=== PATIENT | male | born 1940 | race Caucasian/White ===

== ENCOUNTER → 2017-02-15 | Outpatient (CLI) | payer OTHER ==
--- NOTE | 2017-02-15 11:25 | CARD ---
APPROVED REPORT EXAM: Two-dimensional and M-mode echocardiogram with Doppler and color Doppler. Other Information Quality : Good INDICATION Cardiac Disease: CAD 2D DIMENSIONS RVDd2.9 (2.9-3.5cm)Left Atrium(2D)3.4 (1.6-4.0cm) IVSd0.9 (0.7-1.1cm)Aortic Root(2D)3.4 (2.0-3.7cm) LVDd5.2 (3.9-5.9cm)LVOT Diameter2.3 (1.8-2.4cm) PWd0.9 (0.7-1.1cm)LVDs2.9 (2.5-4.0cm) FS (%) 30.0 %SV97.3 ml LVEF(%)60.0 (>50%) Aortic Valve AoV Peak Shay.105.1cm/sAoV VTI21.9cm AO Peak GR.4.4mmHgLVOT Peak Shay.103.4cm/s LVOT VTI 17.94cmAO Mean GR.3mmHg DEIDRE (VMAX)4.48bp6MZX (VTI)3.44cm2 Mitral Valve MV E Fixdiohf28.4cm/sMV DECEL CEZA901we MV A Yuejhfzc697.7cm/sMV FJO10nk E/A Ratio0.7MVA (PHT)3.34cm2 TDI E/Medial E'14.4 Tricuspid Valve TR P. Kkudufec024ka/sRAP UXSHCMTT6wvWs TR Peak Gr.85meVzKMCZ47opNg Pulmonary Vein S1 Swqtljqt81.6cm/sD2 Bhtknwzc56.8cm/s LEFT VENTRICLE The left ventricle is normal size. There is normal left ventricular wall thickness. The left ventricu lar systolic function is normal and the ejection fraction is within normal range. The Ejection Fracti on is 55-60%. There is normal LV segmental wall motion. Transmitral Doppler flow pattern is Grade I-a bnormal relaxation pattern. RIGHT VENTRICLE The right ventricle is normal size. The right ventricular systolic function is normal. ATRIA The left atrium size is normal. The right atrium size is normal. The interatrial septum is intact wit h no evidence for an atrial septal defect or patent foramen ovale as noted on 2-D or Doppler imaging. AORTIC VALVE The aortic valve is calcified but opens well. Doppler and Color Flow revealed trace aortic regurgitat ion. There is no significant aortic valvular stenosis. MITRAL VALVE The mitral valve is calcified but opens well. There is no evidence of mitral valve prolapse. There is no mitral valve stenosis. Doppler and Color-flow revealed trace to mild mitral regurgitation. TRICUSPID VALVE The tricuspid valve is normal in structure and function. Doppler and Color Flow revealed trace tricus pid regurgitation. The PA pressure was estimated at 29 mmHg. There is no tricuspid valve stenosis. PULMONIC VALVE Doppler and Color Flow revealed trace pulmonic valvular regurgitation. There is no pulmonic valvular stenosis. GREAT VESSELS The aortic root is normal in size. The ascending aorta is mildly dilated at 3.9 cm. The IVC is normal in size and collapses >50% with inspiration. PERICARDIAL EFFUSION There is no evidence of significant pericardial effusion. Critical Notification Critical Value: No <Conclusion> The left ventricular systolic function is normal and the ejection fraction is within normal range. Th e Ejection Fraction is 55-60%. There is normal LV segmental wall motion. The ascending aorta is mildly dilated at 3.9 cm.
== END | disposition home or self-care (01) ==
LOC: ECHO 10:03
PROVIDERS: ATTEND Nurse Practitioner
DX: I25.10 Atherosclerotic heart disease of native coronary artery without angina pectoris (principal)
CPT/HCPCS: 93306

== ENCOUNTER → 2017-06-06 | Outpatient (CLI) | payer OTHER ==
--- NOTE | 2017-06-06 08:54 | KCIC ---
CHEST PA LATERAL History: Preop, left knee replacement 07/22/2017. Comparison: None. Findings: The cardiomediastinal silhouette is normal. Pulmonary vasculature is normal. There is a tiny nodule in the left midlung projecting over a rib near the inferior scapula that may be a calcified granuloma. There is vague right suprahilar airspace opacity measuring about 4 cm. No pleural effusion or pneumothorax is seen. Degenerative endplate spurring in the thoracic spine. IMPRESSION: Right suprahilar airspace opacity. Recommend comparison to prior chest radiographs. If none are available recommend further evaluation with noncontrast CT chest. Electronically signed by: Erwin Sanchez MD (06/06/2017 8:50 AM) [id number]
== END | disposition home or self-care (01) ==
LOC: KCIC 08:09
PROVIDERS: ATTEND Family Medicine
DX: Z01.818 Encounter for other preprocedural examination (principal); R91.8 Other nonspecific abnormal finding of lung field; Z96.652 Presence of left artificial knee joint
CPT/HCPCS: 71020

== ENCOUNTER → 2017-07-15 | Outpatient (CLI) | payer OTHER | END | disposition home or self-care (01) | LOC: KCIC CT 09:29 | DX: J84.10 Pulmonary fibrosis, unspecified (principal); I77.819 Aortic ectasia, unspecified site; E07.9 Disorder of thyroid, unspecified; M47.9 Spondylosis, unspecified; R91.1 Solitary pulmonary nodule | CPT/HCPCS: 71250 ==

== ENCOUNTER → 2017-08-08 | Outpatient (CLI) | payer OTHER | END | disposition home or self-care (01) | LOC: KCIC US 10:45 | DX: E04.2 Nontoxic multinodular goiter (principal) | CPT/HCPCS: 76536 ==

== ENCOUNTER → 2018-03-17 | Outpatient (CLI) | payer OTHER ==
--- NOTE | 2018-03-17 10:34 | KCIC ---
Ankle brachial indices HISTORY: Dyslipidemia. FINDINGS: Right ankle brachial index is 1.10. Left ankle-brachial index is 1.04. IMPRESSION: Normal ankle-brachial indices. Electronically signed by: Rakesh Valadez MD (03/17/2018 10:31 AM) [facility]-KCIC2
== END | disposition home or self-care (01) ==
LOC: KCIC US 08:16
PROVIDERS: ATTEND Family Medicine
DX: E78.5 Hyperlipidemia, unspecified (principal); I25.10 Atherosclerotic heart disease of native coronary artery without angina pectoris; Z96.652 Presence of left artificial knee joint
CPT/HCPCS: 93922

== ENCOUNTER → 2018-03-21 | Outpatient (CLI) | payer OTHER ==
--- NOTE | 2018-03-21 19:43 | KCIC ---
Examination: FOOT RIGHT 3V History: Right lower extremity edema. Erythema of the great toe. Comparison/Correlation: None Findings: Total 3 images of the right foot were obtained. Osteopenia noted. Moderate-sized calcaneal spur is present. No acute fracture or bony destruction. Hallux valgus is present. Impression: No suspicious acute process. Consider further evaluation if osteomyelitis is a concern. Electronically signed by: Zackery Guerra MD (03/21/2018 7:39 PM) [facility]
== END | disposition home or self-care (01) ==
LOC: KCIC 08:04
PROVIDERS: ATTEND Family Medicine
DX: M85.871 Other specified disorders of bone density and structure, right ankle and foot (principal); M77.31 Calcaneal spur, right foot; M20.11 Hallux valgus (acquired), right foot; E78.5 Hyperlipidemia, unspecified; I25.10 Atherosclerotic heart disease of native coronary artery without angina pectoris; Z96.652 Presence of left artificial knee joint
CPT/HCPCS: 73630

== ENCOUNTER 2018-04-13 14:43 | Inpatient (IN) | payer OTHER ==
[~2018-04-13] VITALS: Ht 190.5 cm; Wt 84.8 kg
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
[2018-04-13] MEDS ORDERED: ACETAMINOPHEN 325 MG TABLET. PO PRN (16:15)
[2018-04-13] MEDS ORDERED: traMADol 50 MG TABLET PO PRN (16:15)
[2018-04-13] MEDS ORDERED: DOCUSATE SODIUM 100 MG CAPSULE. PO PRN (16:15)
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
--- NOTE | 2018-04-13 16:41 | EKG ---
[facility] [address] [place] [address] Test Date: 2018-04-13 Test Time: 15:06:44 Pat Name: RODRIGUEZ BACA Department: Room: 436 Gender: M [employer] Job Titles: : 1940 Requested By: MERARY RODRÍGUEZ Order Number: [id number] Reading MD: Adan De Souza MD Measurements Intervals [place] Rate: 57 P: 54 WI: 300 QRS: -59 QRSD: 102 T: 24 QT: 442 QTc: 433 Interpretive Statements SINUS RHYTHM MOBITZ TYPE 1 LAD Electronically Signed On 04-14-2018 12:27:33 CDT by Adan De Souza MD
--- NOTE | 2018-04-13 17:24 | RAD ---
LEFT FEMUR XRAY INDICATION: PAIN FROM FALL COMPARISON: None. FINDINGS: Acute, overlapping subtrochanteric fracture of the proximal left femur. There is medial displacement of the distal fracture fragment. Tricompartmental knee arthrosis. Moderate left hip arthrosis. Suggestion of diffuse osteopenia. Vascular calcifications. IMPRESSION: Acute, overlapping subtrochanteric fracture of the proximal left femur. Electronically signed by: Noah Hardin MD (04/13/2018 5:21 PM) [facility]
--- NOTE | 2018-04-13 17:27 | RAD ---
HIP LEFT 2V WITH PELVIS (pelvic AP, left hip AP and attempted frog-leg view) INDICATION: LEFT HIP PAIN FROM FALL TODAY COMPARISON: None. FINDINGS: Acute, overlapping subtrochanteric fracture of the proximal left femur. There is medial displacement of the distal fracture fragment. Moderate bilateral hip arthrosis. Suggestion of diffuse osteopenia. IMPRESSION: Acute, overlapping subtrochanteric fracture of the proximal left femur. Electronically signed by: Noah Hardin MD (04/13/2018 5:23 PM) [facility]
[2018-04-13 17:30] LABS: BASO # 0.1 x10^3/uL (0.0-0.2); BASO % 0 % (0-3); EOS % 0 % (0-3); HEMATOCRIT 42.1 % (39.0-53.0); HEMOGLOBIN 14.1 g/dL (13.0-17.5); LYMPH # 1.9 x10^3/uL (1.0-4.8); LYMPH % 12 % (24-48); MEAN CORPUSCULAR HEMOGLOBIN 30 pg (25-35); MEAN CORPUSCULAR HGB CONC 34 g/dL (31-37); MEAN CORPUSCULAR VOLUME 89 fL (79-100); MONO # 1.4 x10^3/uL (0.0-1.1); MONO % 9 % (0-9); NEUT # 13.1 x10^3uL (1.8-7.7); NEUT % 79 % (31-73); PLATELET COUNT 226 x10^3/uL (140-400); RED BLOOD COUNT 4.76 x10^6/uL (4.30-5.70); RED CELL DISTRIBUTION WIDTH 14.1 % (11.5-14.5); WHITE BLOOD COUNT 16.5 x10^3/uL (4.0-11.0)
--- NOTE | 2018-04-13 17:30 | RAD ---
PORTABLE CHEST 1V INDICATION: pre-op femur fx COMPARISON: Chest radiographs dated 06/06/2017, CT chest dated 07/15/2017 FINDINGS: Normal lung volume. No focal consolidation. Nodular opacity seen on prior CT in the left upper lobe is not clearly seen radiographically. Remote granulomatous disease. Unchanged pulmonary vasculature. No pleural effusion or pneumothorax. Atherosclerotic thoracic aorta. No acute osseous abnormality. Left greater than right shoulder arthrosis. IMPRESSION: 1. No acute cardiopulmonary process. 2. Nodular opacity seen on prior CT in the left upper lobe is not clearly seen radiographically. Nonemergent follow-up CT chest is again recommended for this nodule. 3. Mild cardiomegaly. Electronically signed by: Noah Hardin MD (04/13/2018 5:27 PM) [facility]
[2018-04-13 17:39] LABS: PROTHROMBIN TIME PATIENT 27.7 SEC (11.7-14.0)
[2018-04-13 17:41] LABS: GFR 72.1; POTASSIUM 3.7 mmol/L (3.5-5.1)
[2018-04-13 17:48] LABS: ALBUMIN 3.2 g/dL (3.4-5.0); ALBUMIN/GLOBULIN RATIO 0.9 (1.0-1.7); TOTAL BILIRUBIN 0.4 mg/dL (0.2-1.0); TOTAL PROTEIN 6.7 g/dL (6.4-8.2)
[2018-04-13] MEDS: ONDANSETRON PF 4 MG/2 ML VIAL. IV PRN (18:21)
[2018-04-13] MEDS: MORPHINE SULFATE 2 MG/ML VIAL. IV PRN (18:24)
[2018-04-13 18:36] LABS: BILIRUBIN,URINE NEGATIVE (NEG); CLARITY,URINE CLEAR; COLOR,URINE YELLOW; NITRITE,URINE NEGATIVE (NEG); PROTEIN,URINE NEGATIVE (NEG-TRACE)
[2018-04-13 18:44] LABS: BACTERIA,URINE 0 /HPF (0-FEW); RBC,URINE 0 /HPF (0-2); SQUAMOUS EPITHELIAL CELL,UR OCC /LPF; WBC,URINE 0 /HPF (0-4)
[2018-04-13 18:53] LABS: % LYMPHS 15 % (24-48); % MONOS 5 % (0-10); % SEGS 80 % (35-66); HELMET CELLS OCC; OVALOCYTES FEW; PLT ESTIMATE ADEQUATE (ADEQUATE); POIKILOCYTOSIS SLIGHT; TOXIC GRANULATION SLIGHT
[2018-04-13 19:00] VITALS: BP 111/79
[2018-04-13] MEDS ORDERED: LOVA20TA2 PO (19:24)
[2018-04-13] MEDS ORDERED: WARF2TAB96 PO ×2 (19:24)
[2018-04-13] MEDS ORDERED: WARF-31 PO (19:24)
[2018-04-13] MEDS ORDERED: ASPI-630 PO (19:24)
[2018-04-13] MEDS ORDERED: PHYTONADIONE (VIT K1) IV 10 MG in IV DEXTROSE 5% 50 ML IV ONE ×2 (19:30→21:00)
[2018-04-13] MEDS: oxyCODONE/APAP 5/325 1 TAB TABLET PO PRN (19:44)
[2018-04-13] MEDS ORDERED: HEPARIN for SUB-Q USE 5,000 UNIT/ML VIAL. SQ SCH (22:00)
[2018-04-13 23:00] VITALS: BP 139/70
[2018-04-14] VITALS (11 sets, daily range): BP systolic 108–147; BP diastolic 53–92
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
[2018-04-14] MEDS: oxyCODONE/APAP 5/325 1 TAB TABLET PO PRN (02:21)
[2018-04-14] MEDS: MORPHINE SULFATE 2 MG/ML VIAL. IV PRN ×3 (02:21→12:33)
[2018-04-14] MEDS: ONDANSETRON PF 4 MG/2 ML VIAL. IV PRN (02:21)
[2018-04-14] MEDS ORDERED: PROCHLORPERAZINE 10 MG/2 ML VIAL. IV PRN (07:30)
[2018-04-14] MEDS ORDERED: MORPHINE SULFATE 2 MG/ML VIAL. IV PRN ×2 (07:30→19:45)
[2018-04-14] MEDS ORDERED: LIDOCAINE 1% PF 2 ML VIAL. ID PRN (07:30)
[2018-04-14] MEDS ORDERED: fentaNYL PF VIAL 100 MCG/2 ML VIAL IV PRN ×3 (07:30→19:45)
[2018-04-14] MEDS ORDERED: HYDROmorphone 2 MG/ML VIAL IV PRN (07:30)
[2018-04-14] MEDS ORDERED: ONDANSETRON PF 4 MG/2 ML VIAL. IV PRN ×2 (07:30→19:45)
[2018-04-14] MEDS ORDERED: IV RINGERS,LACTATED 1000ML 1,000 ML IV SCH (07:30)
[2018-04-14 07:45] LABS: BASO % 0 % (0-3); EOS % 0 % (0-3); HEMATOCRIT 36.5 % (39.0-53.0); HEMOGLOBIN 12.2 g/dL (13.0-17.5); LYMPH # 1.8 x10^3/uL (1.0-4.8); LYMPH % 13 % (24-48); MEAN CORPUSCULAR HEMOGLOBIN 30 pg (25-35); MEAN CORPUSCULAR HGB CONC 33 g/dL (31-37); MEAN CORPUSCULAR VOLUME 89 fL (79-100); MONO # 1.4 x10^3/uL (0.0-1.1); MONO % 11 % (0-9); NEUT # 10.3 x10^3uL (1.8-7.7); NEUT % 76 % (31-73); PLATELET COUNT 196 x10^3/uL (140-400); RED CELL DISTRIBUTION WIDTH 14.3 % (11.5-14.5); WHITE BLOOD COUNT 13.6 x10^3/uL (4.0-11.0)
[2018-04-14] MEDS: ASPIRIN CHEWABLE 81 MG TABLET. PO SCH (07:49)
[2018-04-14 07:57] LABS: CALCIUM 8.5 mg/dL (8.5-10.1); GFR 72.1; POTASSIUM 4.1 mmol/L (3.5-5.1)
[2018-04-14 07:59] LABS: PROTHROMBIN TIME PATIENT 16.9 SEC (11.7-14.0)
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
--- NOTE | 2018-04-14 10:42 | CARD ---
MR#: [id number] Date of Study: 04/14/2018 Ordering Physician: SANTO WILLIS, Referring Physician: SANTO WILLIS Tech: Tonya Fontenot RDCS APPROVED REPORT EXAM: Two-dimensional and M-mode echocardiogram with Doppler and color Doppler. Other Information Quality : Fair INDICATION Abnormal ECG Pre-Op AV-Block 2D DIMENSIONS RVDd3.1 (2.9-3.5cm)Left Atrium(2D)3.3 (1.6-4.0cm) IVSd0.8 (0.7-1.1cm)Aortic Root(2D)3.5 (2.0-3.7cm) LVDd5.0 (3.9-5.9cm)LVOT Diameter2.2 (1.8-2.4cm) PWd0.9 (0.7-1.1cm)LVDs3.2 (2.5-4.0cm) FS (%) 35.4 %SV75.0 ml LVEF(%)64.5 (>50%) Aortic Valve AoV Peak Shay.90.1cm/sAoV VTI13.5cm AO Peak GR.3.2mmHgLVOT VTI 15.17cm AO Mean GR.2mmHgAVA (VTI)4.45cm2 Mitral Valve MV E Nsytqopk03.0cm/sMV DECEL [id number] MV A Qkbwvext70.3cm/sE/A Ratio0.8 TDI Lateral E' P. V3.95cm/sMedial E' P. V3.26cm/s E/Lateral E'16.7E/Medial E'20.2 Tricuspid Valve TR P. Mofrpleh109wg/sRAP [id number] TR Peak Gr.73qfBoJKBR37npMr LEFT VENTRICLE The left ventricle is normal size. There is normal left ventricular wall thickness. The left ventricu lar systolic function is normal. The Ejection Fraction is 60-65%. There is normal LV segmental wall m otion. Transmitral Doppler flow pattern is Grade I-abnormal relaxation pattern. RIGHT VENTRICLE The right ventricle is normal size. The right ventricular systolic function is normal. ATRIA The left atrium size is normal. The right atrium size is normal. The interatrial septum is intact wit h no evidence for an atrial septal defect or patent foramen ovale as noted on 2-D or Doppler imaging. AORTIC VALVE The aortic valve is calcified but opens well. Doppler and Color Flow revealed trace aortic regurgitat ion. There is no significant aortic valvular stenosis. MITRAL VALVE The mitral valve is calcified but opens well. There is no evidence of mitral valve prolapse. There is no mitral valve stenosis. Doppler and Color-flow revealed trace mitral regurgitation. TRICUSPID VALVE The tricuspid valve is normal in structure and function. Doppler and Color Flow revealed trace tricus pid regurgitation. There is mild pulmonary hypertension. The PA pressure was estimated at 39 mmHg. Th ere is no tricuspid valve stenosis. PULMONIC VALVE The pulmonic valve is not well visualized. Doppler and Color Flow revealed trace pulmonic valvular re gurgitation. There is no pulmonic valvular stenosis. GREAT VESSELS The aortic root is normal in size. The ascending aorta is mild to moderately dilated at 4.0 cm. The I VC was not visualized. PERICARDIAL EFFUSION There is no evidence of significant pericardial effusion. Critical Notification Critical Value: No <Conclusion> The left ventricular systolic function is normal. The Ejection Fraction is 60-65%. There is normal LV segmental wall motion. Transmitral Doppler flow pattern is Grade I-abnormal relaxation pattern. Trace mitral regurgitation. Trace tricuspid regurgitation. The PA pressure was estimated at 39 mmHg. There is no evidence of significant pericardial effusion. Signed by : Chang Srinivasan, Electronically Approved : 04/14/2018 10:41:37
--- NOTE | 2018-04-14 12:52 | PDOC ---
PROGRESS NOTES Chief Complaint Chief Complaint Traumatic mechanical fall w/left subtrochanteric femur fx H/o HTN H/o hyperlipidemia H/o PAD, right leg stents H/o CAD, s/p previous PCI/stent to LAD H/o afib H/o bradycardia History of Present Illness History of Present Illness Pt seen and examined Discussed case w/RN Discussed plan w/pt Vitals Vitals Vital Signs Date Time Temp Pulse Resp B/P (MAP) Pulse Ox O2 Delivery O2 Flow Rate FiO2 04/14/18 12:33 16 04/14/18 11:00 97.3 18 133/77 (95) 98 Room Air 97.3 Physical Exam General: Alert, Oriented X3, Cooperative Heart: Regular rate, Normal S1, Normal S2 Lungs: Clear Abdomen: Normal bowel sounds, Soft Extremities: No clubbing, No cyanosis Skin: No rashes, No significant lesion Labs LABS Laboratory Tests Test 04/13/18 17:23 04/13/18 18:27 04/14/18 06:55 White Blood Count 16.5 x10^3/uL (4.0-11.0) 13.6 x10^3/uL (4.0-11.0) Red Blood Count 4.76 x10^6/uL (4.30-5.70) 4.10 x10^6/uL (4.30-5.70) Hemoglobin 14.1 g/dL (13.0-17.5) 12.2 g/dL (13.0-17.5) Hematocrit 42.1 % (39.0-53.0) 36.5 % (39.0-53.0) Mean Corpuscular Volume 89 fL (79-100) 89 fL (79-100) Mean Corpuscular Hemoglobin 30 pg (25-35) 30 pg (25-35) Mean Corpuscular Hemoglobin Concent 34 g/dL (31-37) 33 g/dL (31-37) Red Cell Distribution Width 14.1 % (11.5-14.5) 14.3 % (11.5-14.5) Platelet Count 226 x10^3/uL (140-400) 196 x10^3/uL (140-400) Neutrophils (%) (Auto) 79 % (31-73) 76 % (31-73) Lymphocytes (%) (Auto) 12 % (24-48) 13 % (24-48) Monocytes (%) (Auto) 9 % (0-9) 11 % (0-9) Eosinophils (%) (Auto) 0 % (0-3) 0 % (0-3) Basophils (%) (Auto) 0 % (0-3) 0 % (0-3) Neutrophils # (Auto) 13.1 x10^3uL (1.8-7.7) 10.3 x10^3uL (1.8-7.7) Lymphocytes # (Auto) 1.9 x10^3/uL (1.0-4.8) 1.8 x10^3/uL (1.0-4.8) Monocytes # (Auto) 1.4 x10^3/uL (0.0-1.1) 1.4 x10^3/uL (0.0-1.1) Eosinophils # (Auto) 0.0 x10^3/uL (0.0-0.7) 0.0 x10^3/uL (0.0-0.7) Basophils # (Auto) 0.1 x10^3/uL (0.0-0.2) 0.0 x10^3/uL (0.0-0.2) Segmented Neutrophils % 80 % (35-66) Lymphocytes % 15 % (24-48) Monocytes % 5 % (0-10) Toxic Granulation Slight Platelet Estimate Adequate (ADEQUATE) Poikilocytosis Slight Ovalocytes Few Helmet Cells Occ Prothrombin Time 27.7 SEC (11.7-14.0) 16.9 SEC (11.7-14.0) Prothromb Time International Ratio 2.7 (0.8-1.1) 1.4 (0.8-1.1) Sodium Level 143 mmol/L (136-145) 143 mmol/L (136-145) Potassium Level 3.7 mmol/L (3.5-5.1) 4.1 mmol/L (3.5-5.1) Chloride Level 106 mmol/L (98-107) 107 mmol/L (98-107) Carbon Dioxide Level 31 mmol/L (21-32) 30 mmol/L (21-32) Anion Gap 6 (6-14) 6 (6-14) Blood Urea Nitrogen 25 mg/dL (8-26) 22 mg/dL (8-26) Creatinine 1.0 mg/dL (0.7-1.3) 1.0 mg/dL (0.7-1.3) Estimated GFR (Cockcroft-Gault) 72.1 72.1 BUN/Creatinine Ratio 25 (6-20) Glucose Level 119 mg/dL (70-99) 135 mg/dL (70-99) Calcium Level 9.0 mg/dL (8.5-10.1) 8.5 mg/dL (8.5-10.1) Total Bilirubin 0.4 mg/dL (0.2-1.0) Aspartate Amino Transf (AST/SGOT) 16 U/L (15-37) Alanine Aminotransferase (ALT/SGPT) 20 U/L (16-63) Alkaline Phosphatase 58 U/L (46-116) Total Protein 6.7 g/dL (6.4-8.2) Albumin 3.2 g/dL (3.4-5.0) Albumin/Globulin Ratio 0.9 (1.0-1.7) Urine Collection Type Unknown Urine Color Yellow Urine Clarity Clear Urine pH 7.0 Urine Specific [place] 1.020 Urine Protein Negative mg/dL (NEG-TRACE) Urine Glucose (UA) Negative mg/dL (NEG) Urine Ketones (Stick) Negative mg/dL (NEG) Urine Blood Negative (NEG) Urine Nitrite Negative (NEG) Urine Bilirubin Negative (NEG) Urine Urobilinogen Dipstick 1.0 mg/dL (0.2 mg/dL) Urine Leukocyte Esterase Negative (NEG) Urine RBC 0 /HPF (0-2) Urine WBC 0 /HPF (0-4) Urine Squamous Epithelial Cells Occ /LPF Urine Bacteria 0 /HPF (0-FEW) Urine Mucus Slight /LPF 25-Hydroxy Vitamin D Total 20.0 ng/mL (30-100) Review of Systems Review of Systems Denies chest pain, SOB, neck pain, back pain or pain radiating to extremities Denies changes in bowel/bladder habits Assessment and Plan Assessmemt and Plan Assessment: Traumatic mechanical fall w/left subtrochanteric femur fx H/o HTN H/o hyperlipidemia H/o PAD, right leg stents H/o CAD, s/p previous PCI/stent to LAD H/o afib H/o bradycardia Plan: Going to OR today, 04/14 IVF PRN pain meds Repeat EKG, check echo Labs, check vitamin D DVT ppx PT/OT post surg Wound care post surg SNU for rehab Comment Review of Relevant I have reviewed the following items jolene (where applicable) has been applied. Labs Laboratory Tests Test 04/13/18 17:23 04/13/18 18:27 04/14/18 06:55 White Blood Count 16.5 x10^3/uL (4.0-11.0) 13.6 x10^3/uL (4.0-11.0) Red Blood Count 4.76 x10^6/uL (4.30-5.70) 4.10 x10^6/uL (4.30-5.70) Hemoglobin 14.1 g/dL (13.0-17.5) 12.2 g/dL (13.0-17.5) Hematocrit 42.1 % (39.0-53.0) 36.5 % (39.0-53.0) Mean Corpuscular Volume 89 fL (79-100) 89 fL (79-100) Mean Corpuscular Hemoglobin 30 pg (25-35) 30 pg (25-35) Mean Corpuscular Hemoglobin Concent 34 g/dL (31-37) 33 g/dL (31-37) Red Cell Distribution Width 14.1 % (11.5-14.5) 14.3 % (11.5-14.5) Platelet Count 226 x10^3/uL (140-400) 196 x10^3/uL (140-400) Neutrophils (%) (Auto) 79 % (31-73) 76 % (31-73) Lymphocytes (%) (Auto) 12 % (24-48) 13 % (24-48) Monocytes (%) (Auto) 9 % (0-9) 11 % (0-9) Eosinophils (%) (Auto) 0 % (0-3) 0 % (0-3) Basophils (%) (Auto) 0 % (0-3) 0 % (0-3) Neutrophils # (Auto) 13.1 x10^3uL (1.8-7.7) 10.3 x10^3uL (1.8-7.7) Lymphocytes # (Auto) 1.9 x10^3/uL (1.0-4.8) 1.8 x10^3/uL (1.0-4.8) Monocytes # (Auto) 1.4 x10^3/uL (0.0-1.1) 1.4 x10^3/uL (0.0-1.1) Eosinophils # (Auto) 0.0 x10^3/uL (0.0-0.7) 0.0 x10^3/uL (0.0-0.7) Basophils # (Auto) 0.1 x10^3/uL (0.0-0.2) 0.0 x10^3/uL (0.0-0.2) Segmented Neutrophils % 80 % (35-66) Lymphocytes % 15 % (24-48) Monocytes % 5 % (0-10) Toxic Granulation Slight Platelet Estimate Adequate (ADEQUATE) Poikilocytosis Slight Ovalocytes Few Helmet Cells Occ Prothrombin Time 27.7 SEC (11.7-14.0) 16.9 SEC (11.7-14.0) Prothromb Time International Ratio 2.7 (0.8-1.1) 1.4 (0.8-1.1) Sodium Level 143 mmol/L (136-145) 143 mmol/L (136-145) Potassium Level 3.7 mmol/L (3.5-5.1) 4.1 mmol/L (3.5-5.1) Chloride Level 106 mmol/L (98-107) 107 mmol/L (98-107) Carbon Dioxide Level 31 mmol/L (21-32) 30 mmol/L (21-32) Anion Gap 6 (6-14) 6 (6-14) Blood Urea Nitrogen 25 mg/dL (8-26) 22 mg/dL (8-26) Creatinine 1.0 mg/dL (0.7-1.3) 1.0 mg/dL (0.7-1.3) Estimated GFR (Cockcroft-Gault) 72.1 72.1 BUN/Creatinine Ratio 25 (6-20) Glucose Level 119 mg/dL (70-99) 135 mg/dL (70-99) Calcium Level 9.0 mg/dL (8.5-10.1) 8.5 mg/dL (8.5-10.1) Total Bilirubin 0.4 mg/dL (0.2-1.0) Aspartate Amino Transf (AST/SGOT) 16 U/L (15-37) Alanine Aminotransferase (ALT/SGPT) 20 U/L (16-63) Alkaline Phosphatase 58 U/L (46-116) Total Protein 6.7 g/dL (6.4-8.2) Albumin 3.2 g/dL (3.4-5.0) Albumin/Globulin Ratio 0.9 (1.0-1.7) Urine Collection Type Unknown Urine Color Yellow Urine Clarity Clear Urine pH 7.0 Urine Specific [place] 1.020 Urine Protein Negative mg/dL (NEG-TRACE) Urine Glucose (UA) Negative mg/dL (NEG) Urine Ketones (Stick) Negative mg/dL (NEG) Urine Blood Negative (NEG) Urine Nitrite Negative (NEG) Urine Bilirubin Negative (NEG) Urine Urobilinogen Dipstick 1.0 mg/dL (0.2 mg/dL) Urine Leukocyte Esterase Negative (NEG) Urine RBC 0 /HPF (0-2) Urine WBC 0 /HPF (0-4) Urine Squamous Epithelial Cells Occ /LPF Urine Bacteria 0 /HPF (0-FEW) Urine Mucus Slight /LPF 25-Hydroxy Vitamin D Total 20.0 ng/mL (30-100) Laboratory Tests Test 04/13/18 17:23 04/13/18 18:27 04/14/18 06:55 White Blood Count 16.5 x10^3/uL (4.0-11.0) 13.6 x10^3/uL (4.0-11.0) Red Blood Count 4.76 x10^6/uL (4.30-5.70) 4.10 x10^6/uL (4.30-5.70) Hemoglobin 14.1 g/dL (13.0-17.5) 12.2 g/dL (13.0-17.5) Hematocrit 42.1 % (39.0-53.0) 36.5 % (39.0-53.0) Mean Corpuscular Volume 89 fL (79-100) 89 fL (79-100) Mean Corpuscular Hemoglobin 30 pg (25-35) 30 pg (25-35) Mean Corpuscular Hemoglobin Concent 34 g/dL (31-37) 33 g/dL (31-37) Red Cell Distribution Width 14.1 % (11.5-14.5) 14.3 % (11.5-14.5) Platelet Count 226 x10^3/uL (140-400) 196 x10^3/uL (140-400) Neutrophils (%) (Auto) 79 % (31-73) 76 % (31-73) Lymphocytes (%) (Auto) 12 % (24-48) 13 % (24-48) Monocytes (%) (Auto) 9 % (0-9) 11 % (0-9) Eosinophils (%) (Auto) 0 % (0-3) 0 % (0-3) Basophils (%) (Auto) 0 % (0-3) 0 % (0-3) Neutrophils # (Auto) 13.1 x10^3uL (1.8-7.7) 10.3 x10^3uL (1.8-7.7) Lymphocytes # (Auto) 1.9 x10^3/uL (1.0-4.8) 1.8 x10^3/uL (1.0-4.8) Monocytes # (Auto) 1.4 x10^3/uL (0.0-1.1) 1.4 x10^3/uL (0.0-1.1) Eosinophils # (Auto) 0.0 x10^3/uL (0.0-0.7) 0.0 x10^3/uL (0.0-0.7) Basophils # (Auto) 0.1 x10^3/uL (0.0-0.2) 0.0 x10^3/uL (0.0-0.2) Segmented Neutrophils % 80 % (35-66) Lymphocytes % 15 % (24-48) Monocytes % 5 % (0-10) Toxic Granulation Slight Platelet Estimate Adequate (ADEQUATE) Poikilocytosis Slight Ovalocytes Few Helmet Cells Occ Prothrombin Time 27.7 SEC (11.7-14.0) 16.9 SEC (11.7-14.0) Prothromb Time International Ratio 2.7 (0.8-1.1) 1.4 (0.8-1.1) Sodium Level 143 mmol/L (136-145) 143 mmol/L (136-145) Potassium Level 3.7 mmol/L (3.5-5.1) 4.1 mmol/L (3.5-5.1) Chloride Level 106 mmol/L (98-107) 107 mmol/L (98-107) Carbon Dioxide Level 31 mmol/L (21-32) 30 mmol/L (21-32) Anion Gap 6 (6-14) 6 (6-14) Blood Urea Nitrogen 25 mg/dL (8-26) 22 mg/dL (8-26) Creatinine 1.0 mg/dL (0.7-1.3) 1.0 mg/dL (0.7-1.3) Estimated GFR (Cockcroft-Gault) 72.1 72.1 BUN/Creatinine Ratio 25 (6-20) Glucose Level 119 mg/dL (70-99) 135 mg/dL (70-99) Calcium Level 9.0 mg/dL (8.5-10.1) 8.5 mg/dL (8.5-10.1) Total Bilirubin 0.4 mg/dL (0.2-1.0) Aspartate Amino Transf (AST/SGOT) 16 U/L (15-37) Alanine Aminotransferase (ALT/SGPT) 20 U/L (16-63) Alkaline Phosphatase 58 U/L (46-116) Total Protein 6.7 g/dL (6.4-8.2) Albumin 3.2 g/dL (3.4-5.0) Albumin/Globulin Ratio 0.9 (1.0-1.7) Urine Collection Type Unknown Urine Color Yellow Urine Clarity Clear Urine pH 7.0 Urine Specific [place] 1.020 Urine Protein Negative mg/dL (NEG-TRACE) Urine Glucose (UA) Negative mg/dL (NEG) Urine Ketones (Stick) Negative mg/dL (NEG) Urine Blood Negative (NEG) Urine Nitrite Negative (NEG) Urine Bilirubin Negative (NEG) Urine Urobilinogen Dipstick 1.0 mg/dL (0.2 mg/dL) Urine Leukocyte Esterase Negative (NEG) Urine RBC 0 /HPF (0-2) Urine WBC 0 /HPF (0-4) Urine Squamous Epithelial Cells Occ /LPF Urine Bacteria 0 /HPF (0-FEW) Urine Mucus Slight /LPF 25-Hydroxy Vitamin D Total 20.0 ng/mL (30-100) Medications Current Medications Acetaminophen (Tylenol) 650 mg PRN Q6HRS PRN PO FEVER; Start 04/13/18 at 16:15 Ondansetron HCl (Zofran) 4 mg PRN Q6HRS PRN IV NAUSEA/VOMITING Last administered on 04/14/18at 02:21; Start 04/13/18 at 16:15 Morphine Sulfate (Morphine Sulfate) 2 mg PRN Q2HR PRN IV MODERATE TO SEVERE PAIN Last administered on 04/14/18at 12:33; Start 04/13/18 at 16:15 Tramadol HCl (Ultram) 50 mg PRN Q6HRS PRN PO MILD TO MODERATE PAIN; Start at 16:15 Docusate Sodium (Colace) 100 mg PRN DAILY PRN PO CONSTIPATION; Start 04/13/18 at 16:15 Oxycodone/ Acetaminophen (Percocet 5/325) 1 tab PRN Q4HRS PRN PO SEVERE PAIN Last administered on 04/14/18at 02:21; Start 04/13/18 at 16:15 Heparin Sodium (Porcine) (Heparin Sodium) 5,000 unit Q8HRS SQ ; Start 04/13/18 at 22:00; Stop 04/13/18 at 22:00; Status DC Phytonadione 10 mg/Dextrose 51 ml @ 102 mls/hr 1X ONCE IV Last administered on 04/13/18at 19:45; Start 04/13/18 at 19:30; Stop 04/13/18 at 19:59; Status DC Aspirin (Children'S Aspirin) 81 mg DAILY PO ; Start 04/14/18 at 09:00 Phytonadione 10 mg/Dextrose 51 ml @ 102 mls/hr 1X ONCE IV ; Start 04/13/18 at 21:00; Stop 04/13/18 at 21:29; Status UNV Ondansetron HCl (Zofran) 4 mg PRN Q6HRS PRN IV NAUSEA/VOMITING; Start at 07:30; Stop 04/15/18 at 07:29 Fentanyl Citrate (Fentanyl 2ml Vial) 25 mcg PRN Q5MIN PRN IV MILD PAIN; Start 04/14/18 at 07:30; Stop 04/15/18 at 07:29 Fentanyl Citrate (Fentanyl 2ml Vial) 50 mcg PRN Q5MIN PRN IV MODERATE TO SEVERE PAIN; Start 04/14/18 at 07:30; Stop 04/15/18 at 07:29 Morphine Sulfate (Morphine Sulfate) 1 mg PRN Q10MIN PRN IV SEVERE PAIN; Start 04/14/18 at 07:30; Stop 04/15/18 at 07:29 Ringer's Solution 1,000 ml @ 30 mls/hr Q24H IV ; Start 04/14/18 at 07:30; Stop 04/14/18 at 19:29 Lidocaine HCl (Xylocaine-Mpf 1% 2ml Vial) 2 ml 1X PRN PRN ID IV START; Start 04/14/18 at 07:30; Stop 04/15/18 at 07:29 Hydromorphone HCl (Dilaudid) 0.5 mg PRN Q10MIN PRN IV SEV PAIN, Second choice; Start 04/14/18 at 07:30; Stop 04/15/18 at 07:29 Prochlorperazine Edisylate (Compazine) 5 mg PACU PRN PRN IV NAUSEA, MRX1; Start 04/14/18 at 07:30; Stop 04/15/18 at 07:29 Active Scripts Active Reported Lovastatin 20 Mg Tablet 20 Mg PO HS Warfarin Sodium 5 Mg Tablet 1 Tab PO QMTUTHSA Warfarin Sodium 2 Mg Tablet 2.5 Mg PO QWE Warfarin Sodium 2 Mg Tablet 2.5 Mg PO QSU Aspirin 81 Mg Tab.chew 1 Tab PO DAILY Vitals/I & O Vital Sign - Last 24 Hours 04/13/18 04/13/18 04/13/18 04/13/18 14:43 15:00 15:30 16:00 Temp 97.5 97.5 Pulse 61 64 64 62 Resp 11 19 16 17 B/P (MAP) 142/62 (88) Pulse Ox 100 100 100 95 O2 Delivery Room Air 04/13/18 04/13/18 04/13/18 04/13/18 16:30 17:00 17:30 18:24 Pulse 60 74 66 Resp 20 22 18 19 Pulse Ox 98 94 94 100 O2 Delivery Room Air 04/13/18 04/13/18 04/13/18 04/13/18 19:00 19:44 20:00 23:00 Temp 97.9 97.5 97.9 97.5 Pulse 68 82 Resp 18 20 18 B/P (MAP) 111/79 (90) 139/70 (93) Pulse Ox 93 100 95 O2 Delivery Room Air Room Air Room Air Room Air 04/14/18 04/14/18 04/14/18 04/14/18 02:21 02:21 02:51 03:00 Temp 97.7 97.7 Pulse 72 Resp 20 20 18 B/P (MAP) 147/92 (110) Pulse Ox 95 95 95 98 O2 Delivery Room Air Room Air Room Air 04/14/18 04/14/18 04/14/18 04/14/18 03:21 07:00 08:00 08:43 Temp 98.7 98.7 Pulse 85 Resp 20 18 16 B/P (MAP) 114/80 (91) Pulse Ox 98 98 O2 Delivery Room Air Room Air Room Air Room Air 04/14/18 04/14/18 04/14/18 09:15 11:00 12:33 Temp 97.3 97.3 Pulse 18 Resp 16 18 16 B/P (MAP) 133/77 (95) Pulse Ox 98 O2 Delivery Room Air Room Air Intake and Output 04/13/18 04/13/18 04/14/18 15:00 23:00 07:00 Intake Total 60 ml Output Total 400 ml 200 ml Balance -340 ml -200 ml JEROD MATOS III DO Apr 14, 2018 12:52
[2018-04-14] MEDS ORDERED: ONDANSETRON PF 4 MG/2 ML VIAL. ONE (16:10)
[2018-04-14] MEDS ORDERED: PROPOFOL 20 ML IV ONE ×2 (16:10→17:39)
[2018-04-14] MEDS ORDERED: FAMOTIDINE 20 MG/2 ML VIAL ONE (16:10)
[2018-04-14] MEDS ORDERED: DEXAMETHASONE SOD PHOS 20 MG/5 ML VIAL. ONE (16:10)
[2018-04-14] MEDS ORDERED: ROCURONIUM 50 MG/5 ML VIAL. ONE (16:12)
[2018-04-14] MEDS ORDERED: LIDOCAINE 2% PF Vial for OR 5 ML VIAL. ONE (16:23)
[2018-04-14] MEDS ORDERED: fentaNYL PF VIAL 100 MCG/2 ML VIAL ONE (16:23)
[2018-04-14] MEDS ORDERED: BUPIVAC MPF-EPI 0.5%-1:200000 30 ML VIAL. ONE (17:09)
[2018-04-14] MEDS ORDERED: PHENYLEPHRINE in 0.9% NACL PF 1 MG/10 ML SYRINGE. IV ONE (17:39)
[2018-04-14] MEDS ORDERED: SEVOFLURANE > 120 MINUTES. IH ONE (17:44)
[2018-04-14] MEDS ORDERED: GLYCOPYRROLATE 1 MG/5 ML VIAL. ONE (18:22)
[2018-04-14] MEDS ORDERED: NEOSTIGMINE METHYLSULFATE 5 MG/5 ML SYRINGE. ONE (18:22)
[2018-04-14] MEDS ORDERED: DEXTROSE 50% 25 GM / 50ML DISP.SYRIN. IV PRN (19:45)
[2018-04-14] MEDS ORDERED: POLYETHYLENE GLYCOL 3350 17 GM PACKET. PO PRN (19:45)
[2018-04-14] MEDS ORDERED: MORPHINE SULFATE 4 MG/ML VIAL. IV PRN (19:45)
[2018-04-14] MEDS ORDERED: oxyCODONE IR 5 MG TABLET PO PRN (19:45)
--- NOTE | 2018-04-14 20:13 | PDOC4 ---
Operative Note Operative Note Date of surgery: 04/14/2018 Preoperative diagnosis: Displaced left subtrochanteric femur fracture Postoperative diagnosis: Same Operative procedure: Operative reduction internal fixation left subtrochanteric femur fracture Surgeon: Caleb Anesthesia: Gen. Estimated blood loss: 250 mL Complications: None Operative indications: Sergio is a 78-year-old male otherwise very active got knocked down onto the floor when he was at [facility] sustaining a left subtrochanteric hip fracture. He underwent cardiac clearance and reversal of his anticoagulation on Coumadin and is now ready for surgery today. We had previously discussed planned operative fixation risks benefits postoperative course including the possibility of infection nonhealing nerve or blood vessel damage bleeding medical or other anesthetic complications among others all his questions were answered he wishes to proceed with surgical evaluation and treatment. Operative text: Patient was identified procedure verified patient placed in the supine position on the [place] fracture table. After adequate amounts of general endotracheal anesthesia were administered left leg was placed in traction well leg was placed in the leg zapata all bony prominences were well-padded and provisional reduction was carried out of the fracture under fluoroscopic guidance. The left hip was then prepped and draped in standard sterile fashion and after timeout was performed patient procedure identified and verified and incision was made proximal to the greater trochanteric starting point and the starting awl was used to position the fracture guidewire was placed across the fracture site with good reduction. Entry reamer was then placed and reaming was carried out up to a size 13. A size 11.5 x 42 mm length 130 long InterTAN nail was placed guidewire was advanced up the center of the femoral neck and a lag plus compression screw were placed due to the superior rotational control and cut out strength. Distal locking screw was placed in the static hole under fluoroscopic guidance and fracture reduction was verified to be adequate as well has hardware placement. Thorough irrigation carried out normal saline solution fascia was closed with #1 Vicryl suture subcutaneous closure with buried Vicryl suture skin closure with emre patient was returned recovery room in stable condition having tolerated procedure well GUILLERMINA GUNN MD Apr 14, 2018 20:13
[2018-04-14] MEDS ORDERED: WARFARIN 7.5 MG TABLET. PO ONE (21:00)
[2018-04-15 03:00] VITALS: BP 124/71
[2018-04-15 05:25] LABS: HEMATOCRIT 34.1 % (39.0-53.0); HEMOGLOBIN 11.4 g/dL (13.0-17.5)
[2018-04-15] MEDS: HYDROcodone/APAP 7.5/325MG 1 TAB TABLET PO PRN ×2 (05:49→17:38)
[2018-04-15] MEDS ORDERED: MAGNESIUM HYDROXIDE 2,400 MG/30 ML ORAL.SUSP. PO PRN (06:00)
[2018-04-15 07:00] VITALS: BP 113/64
[2018-04-15] MEDS: SENNOSIDES/DOCUSATE 8.6/50MG TABLET. PO SCH (08:06)
[2018-04-15] MEDS: ASPIRIN CHEWABLE 81 MG TABLET. PO SCH (08:06)
[2018-04-15 11:00] VITALS: BP 118/71
[2018-04-15] MEDS ORDERED: BENZOCAINE/MENTHOL LOZENGE. PO PRN (12:15)
--- NOTE | 2018-04-15 14:20 | PDOC ---
PROGRESS NOTES Subjective Subjective Problems overnight: Left hip and thigh areas quite sore, able to set the leg down but no more when ambulating which is basically the extent of his restriction, otherwise appears alert and doing well Objective Vital Signs Vital Signs Date Time Temp Pulse Resp B/P (MAP) Pulse Ox O2 Delivery O2 Flow Rate FiO2 04/15/18 11:00 98.4 93 18 118/71 (87) 96 Room Air 98.4 04/14/18 20:13 2.0 Physical Exam On examination dressings clean dry intact leg lengths equal no rotational deformity distal neurovascular status intact Labs Laboratory Tests Test 04/13/18 17:23 04/13/18 18:27 04/14/18 06:55 04/15/18 04:25 White Blood Count 16.5 x10^3/uL (4.0-11.0) 13.6 x10^3/uL (4.0-11.0) Red Blood Count 4.76 x10^6/uL (4.30-5.70) 4.10 x10^6/uL (4.30-5.70) Hemoglobin 14.1 g/dL (13.0-17.5) 12.2 g/dL (13.0-17.5) 11.4 g/dL (13.0-17.5) Hematocrit 42.1 % (39.0-53.0) 36.5 % (39.0-53.0) 34.1 % (39.0-53.0) Mean Corpuscular Volume 89 fL (79-100) 89 fL (79-100) Mean Corpuscular Hemoglobin 30 pg (25-35) 30 pg (25-35) Mean Corpuscular Hemoglobin Concent 34 g/dL (31-37) 33 g/dL (31-37) 34 g/dL (31-37) Red Cell Distribution Width 14.1 % (11.5-14.5) 14.3 % (11.5-14.5) Platelet Count 226 x10^3/uL (140-400) 196 x10^3/uL (140-400) Neutrophils (%) (Auto) 79 % (31-73) 76 % (31-73) Lymphocytes (%) (Auto) 12 % (24-48) 13 % (24-48) Monocytes (%) (Auto) 9 % (0-9) 11 % (0-9) Eosinophils (%) (Auto) 0 % (0-3) 0 % (0-3) Basophils (%) (Auto) 0 % (0-3) 0 % (0-3) Neutrophils # (Auto) 13.1 x10^3uL (1.8-7.7) 10.3 x10^3uL (1.8-7.7) Lymphocytes # (Auto) 1.9 x10^3/uL (1.0-4.8) 1.8 x10^3/uL (1.0-4.8) Monocytes # (Auto) 1.4 x10^3/uL (0.0-1.1) 1.4 x10^3/uL (0.0-1.1) Eosinophils # (Auto) 0.0 x10^3/uL (0.0-0.7) 0.0 x10^3/uL (0.0-0.7) Basophils # (Auto) 0.1 x10^3/uL (0.0-0.2) 0.0 x10^3/uL (0.0-0.2) Segmented Neutrophils % 80 % (35-66) Lymphocytes % 15 % (24-48) Monocytes % 5 % (0-10) Toxic Granulation Slight Platelet Estimate Adequate (ADEQUATE) Poikilocytosis Slight Ovalocytes Few Helmet Cells Occ Prothrombin Time 27.7 SEC (11.7-14.0) 16.9 SEC (11.7-14.0) Prothromb Time International Ratio 2.7 (0.8-1.1) 1.4 (0.8-1.1) Sodium Level 143 mmol/L (136-145) 143 mmol/L (136-145) Potassium Level 3.7 mmol/L (3.5-5.1) 4.1 mmol/L (3.5-5.1) Chloride Level 106 mmol/L (98-107) 107 mmol/L (98-107) Carbon Dioxide Level 31 mmol/L (21-32) 30 mmol/L (21-32) Anion Gap 6 (6-14) 6 (6-14) Blood Urea Nitrogen 25 mg/dL (8-26) 22 mg/dL (8-26) Creatinine 1.0 mg/dL (0.7-1.3) 1.0 mg/dL (0.7-1.3) Estimated GFR (Cockcroft-Gault) 72.1 72.1 BUN/Creatinine Ratio 25 (6-20) Glucose Level 119 mg/dL (70-99) 135 mg/dL (70-99) Calcium Level 9.0 mg/dL (8.5-10.1) 8.5 mg/dL (8.5-10.1) Total Bilirubin 0.4 mg/dL (0.2-1.0) Aspartate Amino Transf (AST/SGOT) 16 U/L (15-37) Alanine Aminotransferase (ALT/SGPT) 20 U/L (16-63) Alkaline Phosphatase 58 U/L (46-116) Total Protein 6.7 g/dL (6.4-8.2) Albumin 3.2 g/dL (3.4-5.0) Albumin/Globulin Ratio 0.9 (1.0-1.7) Urine Collection Type Unknown Urine Color Yellow Urine Clarity Clear Urine pH 7.0 Urine Specific [place] 1.020 Urine Protein Negative mg/dL (NEG-TRACE) Urine Glucose (UA) Negative mg/dL (NEG) Urine Ketones (Stick) Negative mg/dL (NEG) Urine Blood Negative (NEG) Urine Nitrite Negative (NEG) Urine Bilirubin Negative (NEG) Urine Urobilinogen Dipstick 1.0 mg/dL (0.2 mg/dL) Urine Leukocyte Esterase Negative (NEG) Urine RBC 0 /HPF (0-2) Urine WBC 0 /HPF (0-4) Urine Squamous Epithelial Cells Occ /LPF Urine Bacteria 0 /HPF (0-FEW) Urine Mucus Slight /LPF 25-Hydroxy Vitamin D Total 20.0 ng/mL (30-100) Laboratory Tests Test 04/15/18 04:25 Hemoglobin 11.4 g/dL (13.0-17.5) Hematocrit 34.1 % (39.0-53.0) Mean Corpuscular Hemoglobin Concent 34 g/dL (31-37) Assessment Assessment POD# [1], S/P [ORIF left subtrochanteric femur fracture] Plan Plan of Care I went over with him and his family his weightbearing restriction of about 25% which basically means to put the weight of the leg down and possibly a little bit more if he tolerates it taking the rest of his weight on the walker or other support. I emphasized that the hip is going to be quite sore with movement due to the muscles in the recovering fracture even though it is fixed. Bleeding in the area is going to cause bruising and tenderness and that will resolve slowly with time He can be back on his anticoagulation, other medical supportive care and likely rehabilitation placement on discharge when medically stable GUILLERMINA GUNN MD Apr 15, 2018 14:20
[2018-04-15 15:00] VITALS: BP 128/80
[2018-04-15] MEDS ORDERED: WARFARIN 5 MG TABLET. PO ONE (16:00)
[2018-04-15] MEDS ORDERED: BISACODYL 10 MG SUPP.RECT. PR PRN (16:00)
--- NOTE | 2018-04-15 16:31 | PDOC ---
PROGRESS NOTES Chief Complaint Chief Complaint Traumatic mechanical fall w/left subtrochanteric femur fx H/o HTN H/o hyperlipidemia H/o PAD, right leg stents H/o CAD, s/p previous PCI/stent to LAD H/o afib H/o bradycardia History of Present Illness History of Present Illness Pt seen and examined Discussed case w/RN Discussed plan w/pt Vitals Vitals Vital Signs Date Time Temp Pulse Resp B/P (MAP) Pulse Ox O2 Delivery O2 Flow Rate FiO2 04/15/18 11:00 98.4 93 18 118/71 (87) 96 Room Air 98.4 04/14/18 20:13 2.0 Physical Exam General: Alert, Oriented X3, Cooperative, No acute distress, mild distress Heart: Regular rate, Normal S1, Normal S2 Lungs: Clear Abdomen: Normal bowel sounds, Soft, No tenderness Extremities: No cyanosis, Normal pulses, Other (left knee edema ) Skin: No breakdown, No significant lesion Labs LABS Laboratory Tests Test 04/15/18 04:25 Hemoglobin 11.4 g/dL (13.0-17.5) Hematocrit 34.1 % (39.0-53.0) Mean Corpuscular Hemoglobin Concent 34 g/dL (31-37) Comment Review of Relevant I have reviewed the following items jolene (where applicable) has been applied. Labs Laboratory Tests Test 04/13/18 17:23 04/13/18 18:27 04/14/18 06:55 04/15/18 04:25 White Blood Count 16.5 x10^3/uL (4.0-11.0) 13.6 x10^3/uL (4.0-11.0) Red Blood Count 4.76 x10^6/uL (4.30-5.70) 4.10 x10^6/uL (4.30-5.70) Hemoglobin 14.1 g/dL (13.0-17.5) 12.2 g/dL (13.0-17.5) 11.4 g/dL (13.0-17.5) Hematocrit 42.1 % (39.0-53.0) 36.5 % (39.0-53.0) 34.1 % (39.0-53.0) Mean Corpuscular Volume 89 fL (79-100) 89 fL (79-100) Mean Corpuscular Hemoglobin 30 pg (25-35) 30 pg (25-35) Mean Corpuscular Hemoglobin Concent 34 g/dL (31-37) 33 g/dL (31-37) 34 g/dL (31-37) Red Cell Distribution Width 14.1 % (11.5-14.5) 14.3 % (11.5-14.5) Platelet Count 226 x10^3/uL (140-400) 196 x10^3/uL (140-400) Neutrophils (%) (Auto) 79 % (31-73) 76 % (31-73) Lymphocytes (%) (Auto) 12 % (24-48) 13 % (24-48) Monocytes (%) (Auto) 9 % (0-9) 11 % (0-9) Eosinophils (%) (Auto) 0 % (0-3) 0 % (0-3) Basophils (%) (Auto) 0 % (0-3) 0 % (0-3) Neutrophils # (Auto) 13.1 x10^3uL (1.8-7.7) 10.3 x10^3uL (1.8-7.7) Lymphocytes # (Auto) 1.9 x10^3/uL (1.0-4.8) 1.8 x10^3/uL (1.0-4.8) Monocytes # (Auto) 1.4 x10^3/uL (0.0-1.1) 1.4 x10^3/uL (0.0-1.1) Eosinophils # (Auto) 0.0 x10^3/uL (0.0-0.7) 0.0 x10^3/uL (0.0-0.7) Basophils # (Auto) 0.1 x10^3/uL (0.0-0.2) 0.0 x10^3/uL (0.0-0.2) Segmented Neutrophils % 80 % (35-66) Lymphocytes % 15 % (24-48) Monocytes % 5 % (0-10) Toxic Granulation Slight Platelet Estimate Adequate (ADEQUATE) Poikilocytosis Slight Ovalocytes Few Helmet Cells Occ Prothrombin Time 27.7 SEC (11.7-14.0) 16.9 SEC (11.7-14.0) Prothromb Time International Ratio 2.7 (0.8-1.1) 1.4 (0.8-1.1) Sodium Level 143 mmol/L (136-145) 143 mmol/L (136-145) Potassium Level 3.7 mmol/L (3.5-5.1) 4.1 mmol/L (3.5-5.1) Chloride Level 106 mmol/L (98-107) 107 mmol/L (98-107) Carbon Dioxide Level 31 mmol/L (21-32) 30 mmol/L (21-32) Anion Gap 6 (6-14) 6 (6-14) Blood Urea Nitrogen 25 mg/dL (8-26) 22 mg/dL (8-26) Creatinine 1.0 mg/dL (0.7-1.3) 1.0 mg/dL (0.7-1.3) Estimated GFR (Cockcroft-Gault) 72.1 72.1 BUN/Creatinine Ratio 25 (6-20) Glucose Level 119 mg/dL (70-99) 135 mg/dL (70-99) Calcium Level 9.0 mg/dL (8.5-10.1) 8.5 mg/dL (8.5-10.1) Total Bilirubin 0.4 mg/dL (0.2-1.0) Aspartate Amino Transf (AST/SGOT) 16 U/L (15-37) Alanine Aminotransferase (ALT/SGPT) 20 U/L (16-63) Alkaline Phosphatase 58 U/L (46-116) Total Protein 6.7 g/dL (6.4-8.2) Albumin 3.2 g/dL (3.4-5.0) Albumin/Globulin Ratio 0.9 (1.0-1.7) Urine Collection Type Unknown Urine Color Yellow Urine Clarity Clear Urine pH 7.0 Urine Specific [place] 1.020 Urine Protein Negative mg/dL (NEG-TRACE) Urine Glucose (UA) Negative mg/dL (NEG) Urine Ketones (Stick) Negative mg/dL (NEG) Urine Blood Negative (NEG) Urine Nitrite Negative (NEG) Urine Bilirubin Negative (NEG) Urine Urobilinogen Dipstick 1.0 mg/dL (0.2 mg/dL) Urine Leukocyte Esterase Negative (NEG) Urine RBC 0 /HPF (0-2) Urine WBC 0 /HPF (0-4) Urine Squamous Epithelial Cells Occ /LPF Urine Bacteria 0 /HPF (0-FEW) Urine Mucus Slight /LPF 25-Hydroxy Vitamin D Total 20.0 ng/mL (30-100) Laboratory Tests Test 04/15/18 04:25 Hemoglobin 11.4 g/dL (13.0-17.5) Hematocrit 34.1 % (39.0-53.0) Mean Corpuscular Hemoglobin Concent 34 g/dL (31-37) Medications Current Medications Acetaminophen (Tylenol) 650 mg PRN Q6HRS PRN PO FEVER; Start 04/13/18 at 16:15 Ondansetron HCl (Zofran) 4 mg PRN Q6HRS PRN IV NAUSEA/VOMITING Last administered on 04/14/18at 02:21; Start 04/13/18 at 16:15; Stop 04/14/18 at 19 :53; Status DC Morphine Sulfate (Morphine Sulfate) 2 mg PRN Q2HR PRN IV MODERATE TO SEVERE PAIN Last administered on 04/14/18at 12:33; Start 04/13/18 at 16:15; Stop at 19:53; Status DC Tramadol HCl (Ultram) 50 mg PRN Q6HRS PRN PO MILD TO MODERATE PAIN; Start at 16:15; Stop 04/14/18 at 19:53; Status DC Docusate Sodium (Colace) 100 mg PRN DAILY PRN PO HARD STOOLS; Start 04/13/18 at 16:15 Oxycodone/ Acetaminophen (Percocet 5/325) 1 tab PRN Q4HRS PRN PO SEVERE PAIN Last administered on 04/14/18at 02:21; Start 04/13/18 at 16:15; Stop 04/14/18 at 19:53; Status DC Heparin Sodium (Porcine) (Heparin Sodium) 5,000 unit Q8HRS SQ ; Start 04/13/18 at 22:00; Stop 04/13/18 at 22:00; Status DC Phytonadione 10 mg/Dextrose 51 ml @ 102 mls/hr 1X ONCE IV Last administered on 04/13/18at 19:45; Start 04/13/18 at 19:30; Stop 04/13/18 at 19:59; Status DC Aspirin (Children'S Aspirin) 81 mg DAILY PO Last administered on 04/15/18at 08: 06; Start 04/14/18 at 09:00 Phytonadione 10 mg/Dextrose 51 ml @ 102 mls/hr 1X ONCE IV ; Start 04/13/18 at 21:00; Stop 04/13/18 at 21:29; Status UNV Ondansetron HCl (Zofran) 4 mg PRN Q6HRS PRN IV NAUSEA/VOMITING; Start at 07:30; Stop 04/14/18 at 21:00; Status DC Fentanyl Citrate (Fentanyl 2ml Vial) 25 mcg PRN Q5MIN PRN IV MILD PAIN; Start 04/14/18 at 07:30; Stop 04/14/18 at 21:00; Status DC Fentanyl Citrate (Fentanyl 2ml Vial) 50 mcg PRN Q5MIN PRN IV MODERATE TO SEVERE PAIN Last administered on 04/14/18at 19:43; Start 04/14/18 at 07:30; Stop 04/14/18 at 21:00; Status DC Morphine Sulfate (Morphine Sulfate) 1 mg PRN Q10MIN PRN IV SEVERE PAIN; Start 04/14/18 at 07:30; Stop 04/14/18 at 21:00; Status DC Ringer's Solution 1,000 ml @ 30 mls/hr Q24H IV ; Start 04/14/18 at 07:30; Stop 04/14/18 at 19:30; Status DC Lidocaine HCl (Xylocaine-Mpf 1% 2ml Vial) 2 ml 1X PRN PRN ID IV START; Start 04/14/18 at 07:30; Stop 04/14/18 at 21:00; Status DC Hydromorphone HCl (Dilaudid) 0.5 mg PRN Q10MIN PRN IV SEV PAIN, Second choice; Start 04/14/18 at 07:30; Stop 04/14/18 at 21:00; Status DC Prochlorperazine Edisylate (Compazine) 5 mg PACU PRN PRN IV NAUSEA, MRX1; Start 04/14/18 at 07:30; Stop 04/14/18 at 21:00; Status DC Dexamethasone Sodium Phosphate (Decadron) 20 mg STK-MED ONCE .ROUTE ; Start at 16:10; Stop 04/14/18 at 16:11; Status DC Ondansetron HCl (Zofran) 4 mg STK-MED ONCE .ROUTE ; Start 04/14/18 at 16:10; Stop 04/14/18 at 16:11; Status DC Famotidine (Pepcid Vial) 20 mg STK-MED ONCE .ROUTE ; Start 04/14/18 at 16:10; Stop 04/14/18 at 16:11; Status DC Propofol 20 ml @ As Directed STK-MED ONCE IV ; Start 04/14/18 at 16:10; Stop 04/14/18 at 16:11; Status DC Rocuronium [place] (Zemuron) 50 mg STK-MED ONCE .ROUTE ; Start 04/14/18 at 16: 12; Stop 04/14/18 at 16:13; Status DC Lidocaine HCl (Lidocaine Pf 2% Vial) 5 ml STK-MED ONCE .ROUTE ; Start 04/14/18 at 16:23; Stop 04/14/18 at 16:24; Status DC Fentanyl Citrate (Fentanyl 2ml Vial) 100 mcg STK-MED ONCE .ROUTE ; Start at 16:23; Stop 04/14/18 at 16:24; Status DC Cefazolin Sodium/ Dextrose 50 ml @ 100 mls/hr 1X ONCE IV Last administered on 04/14/18at 17:35; Start 04/14/18 at 17:17; Stop 04/14/18 at 17:46; Status DC Phenylephrine HCl (PHENYLEPHRINE in 0.9% NACL PF) 1 mg STK-MED ONCE IV ; Start 04/14/18 at 17:39; Stop 04/14/18 at 17:40; Status DC Propofol 20 ml @ As Directed STK-MED ONCE IV ; Start 04/14/18 at 17:39; Stop 04/14/18 at 17:40; Status DC Sevoflurane (Ultane) 90 ml STK-MED ONCE IH ; Start 04/14/18 at 17:44; Stop at 17:45; Status DC Bupivacaine HCl/ Epinephrine Bitart (Sensorcain-Mpf Epi 0.5%-[id number]) 30 ml STK -MED ONCE .ROUTE Last administered on 04/14/18at 19:10; Start 04/14/18 at 17: 09; Stop 04/14/18 at 18:10; Status DC Glycopyrrolate (Robinul) 1 mg STK-MED ONCE .ROUTE ; Start 04/14/18 at 18:22; Stop 04/14/18 at 18:23; Status DC Neostigmine Methylsulfate (Neostigmine Methylsulfate) 5 mg STK-MED ONCE .ROUTE ; Start 04/14/18 at 18:22; Stop 04/14/18 at 18:23; Status DC Oxycodone HCl (Roxicodone) 5 mg PRN Q3HRS PRN PO PAIN; Start 04/14/18 at 19:45 Morphine Sulfate (Morphine Sulfate) 2 mg PRN Q1HR PRN IV PAIN; Start 04/14/18 at 19:45 Fentanyl Citrate (Fentanyl 2ml Vial) 25 mcg PRN Q1HR PRN IV PAIN Last administered on 04/14/18at 20:00; Start 04/14/18 at 19:45 Senna/Docusate Sodium (Senna Plus) 1 tab DAILY PO Last administered on at 08:06; Start 04/15/18 at 09:00 Polyethylene Glycol (miraLAX PACKET) 17 gm PRN DAILY PRN PO CONSTIPATION; Start 04/14/18 at 19:45 Ondansetron HCl (Zofran) 4 mg PRN Q4HRS PRN IV NAUSEA/VOMITING; Start at 19:45 Warfarin Sodium (Coumadin Per Pharmacy) 1 each PRN DAILY PRN MC SEE COMMENTS Last administered on 04/15/18at 11:55; Start 04/15/18 at 19:45 Magnesium Hydroxide (Milk Of Magnesia) 2,400 mg 1X PRN PRN PO CONSTIPATION; Start 04/15/18 at 06:00; Stop 04/16/18 at 05:59 Bisacodyl (Dulcolax Supp) 10 mg 1X PRN PRN [place] CONSTIPATION; Start 04/15/18 at 16:00; Stop 04/16/18 at 15:59 Acetaminophen/ Hydrocodone Bitart (Lortab 7.5/325) 1 tab PRN Q4HRS PRN PO PAIN Last administered on 04/15/18at 05:49; Start 04/14/18 at 19:45 Morphine Sulfate (Morphine Sulfate) 4 mg PRN Q2HR PRN IV PAIN; Start 04/14/18 at 19:45 Acetaminophen/ Hydrocodone Bitart (Lortab 7.5/325) 2 tab PRN Q4HRS PRN PO PAIN ; Start 04/14/18 at 19:45 Dextrose (Dextrose 50%-Water Syringe) 12.5 gm PRN Q15MIN PRN IV SEE COMMENTS; Start 04/14/18 at 19:45 Cefazolin Sodium/ Dextrose 50 ml @ 100 mls/hr Q6H IV Last administered on at 12:13; Start 04/14/18 at 23:30; Stop 04/15/18 at 11:59; Status DC Warfarin Sodium (Coumadin) 7.5 mg 1X ONCE PO Last administered on 04/14/18at 21:13; Start 04/14/18 at 21:00; Stop 04/14/18 at 21:01; Status DC Warfarin Sodium (Coumadin) 10 mg 1X WARF ONCE PO ; Start 04/15/18 at 16:00; Stop 04/15/18 at 16:01; Status DC Throat Lozenges (Cepacol Sore Throat Lozenge) 1 cecilia PRN Q2HRS PRN PO SORE THROAT Last administered on 04/15/18at 12:12; Start 04/15/18 at 12:15 Active Scripts Active Reported Lovastatin 20 Mg Tablet 20 Mg PO HS Warfarin Sodium 5 Mg Tablet 1 Tab PO QMTUTHSA Warfarin Sodium 2 Mg Tablet 2.5 Mg PO QWE Warfarin Sodium 2 Mg Tablet 2.5 Mg PO QSU Aspirin 81 Mg Tab.chew 1 Tab PO DAILY Vitals/I & O Vital Sign - Last 24 Hours 04/14/18 04/14/18 04/14/18 04/14/18 18:18 19:18 19:32 19:43 Temp 97.2 97.2 Pulse 79 77 Resp 16 18 12 B/P (MAP) 150/63 150/63 Pulse Ox 99 99 99 O2 Delivery Mask Simple Mask Simple Mask Room Air O2 Flow Rate 15 15 15 15.0 04/14/18 04/14/18 04/14/18 04/14/18 19:47 20:00 20:00 20:05 Pulse 73 64 Resp 16 16 16 B/P (MAP) 128/64 126/66 Pulse Ox 100 97 97 O2 Delivery Simple Mask Nasal Cannula Room Air Simple Mask O2 Flow Rate 15.0 2.0 2 10/2204/14/18 04/14/18 04/14/18 20:13 20:15 20:30 20:45 Temp 97.9 97.9 Pulse 69 56 Resp 18 B/P (MAP) 125/56 (79) 114/55 (74) Pulse Ox 98 98 96 O2 Delivery Nasal Cannula Room Air Room Air Room Air O2 Flow Rate 2.0 04/14/18 04/14/18 04/14/18 04/14/18 21:00 21:30 22:00 22:30 Pulse 77 78 78 B/P (MAP) 124/54 (77) 122/72 (89) 117/61 (79) 111/60 (77) Pulse Ox 96 96 96 O2 Delivery Room Air Room Air Room Air Room Air 04/14/18 04/15/18 04/15/18 04/15/18 23:00 03:00 05:49 06:50 Temp 97.9 97.9 97.9 97.9 Pulse 65 67 Resp 18 18 B/P (MAP) 108/53 (71) 124/71 (88) Pulse Ox 98 98 O2 Delivery Room Air Room Air Room Air Room Air 04/15/18 04/15/18 04/15/18 07:00 08:00 11:00 Temp 97.8 98.4 97.8 98.4 Pulse 81 93 Resp 18 18 B/P (MAP) 113/64 (80) 118/71 (87) Pulse Ox 96 96 O2 Delivery Room Air Room Air Room Air Intake and Output 04/14/18 04/14/18 04/15/18 15:00 23:00 07:00 Intake Total 500 ml Output Total 600 ml 500 ml Balance -100 ml -500 ml LISSETTE ALVARADO MD Apr 15, 2018 16:31
[2018-04-15 19:48] VITALS: BP 111/55
[2018-04-15 23:07] VITALS: BP 125/89
[2018-04-16 03:44] VITALS: BP 144/72
[2018-04-16 04:19] VITALS: BP 144/72
[2018-04-16 04:49] LABS: BASO % 0 % (0-3); EOS % 0 % (0-3); HEMOGLOBIN 10.7 g/dL (13.0-17.5); LYMPH % 11 % (24-48); MEAN CORPUSCULAR HEMOGLOBIN 30 pg (25-35); MEAN CORPUSCULAR HGB CONC 35 g/dL (31-37); MEAN CORPUSCULAR VOLUME 88 fL (79-100); MONO # 1.8 x10^3/uL (0.0-1.1); MONO % 10 % (0-9); NEUT # 15.4 x10^3uL (1.8-7.7); NEUT % 80 % (31-73); PLATELET COUNT 165 x10^3/uL (140-400); RED BLOOD COUNT 3.53 x10^6/uL (4.30-5.70); RED CELL DISTRIBUTION WIDTH 14.4 % (11.5-14.5); WHITE BLOOD COUNT 19.2 x10^3/uL (4.0-11.0)
[2018-04-16 04:50] LABS: PROTHROMBIN TIME PATIENT 17.3 SEC (11.7-14.0)
[2018-04-16 05:08] LABS: ALBUMIN 2.4 g/dL (3.4-5.0); ALBUMIN/GLOBULIN RATIO 0.7 (1.0-1.7); CALCIUM 8.9 mg/dL (8.5-10.1); CREATININE 1.1 mg/dL (0.7-1.3); GFR 64.6; POTASSIUM 4.1 mmol/L (3.5-5.1); TOTAL BILIRUBIN 0.7 mg/dL (0.2-1.0); TOTAL PROTEIN 5.9 g/dL (6.4-8.2)
[2018-04-16] MEDS: HYDROcodone/APAP 7.5/325MG 1 TAB TABLET PO PRN ×3 (05:49→14:53)
[2018-04-16 07:00] VITALS: BP 129/69
[2018-04-16] MEDS: SENNOSIDES/DOCUSATE 8.6/50MG TABLET. PO SCH (09:30)
[2018-04-16] MEDS: ASPIRIN CHEWABLE 81 MG TABLET. PO SCH (09:30)
--- NOTE | 2018-04-16 10:15 | PDOC ---
PROGRESS NOTES Chief Complaint Chief Complaint Traumatic mechanical fall w/left subtrochanteric femur fx H/o HTN H/o hyperlipidemia H/o PAD, right leg stents H/o CAD, s/p previous PCI/stent to LAD H/o afib H/o bradycardia d/c to snf today History of Present Illness History of Present Illness Pt seen and examined Discussed case w/RN Discussed plan w/pt Vitals Vitals Vital Signs Date Time Temp Pulse Resp B/P (MAP) Pulse Ox O2 Delivery O2 Flow Rate FiO2 04/16/18 09:30 Room Air 04/16/18 07:00 97.9 63 18 129/69 (89) 98 97.9 Physical Exam General: Alert, Oriented X3, Cooperative, No acute distress, mild distress Heart: Regular rate, Normal S1, Normal S2 Lungs: Clear Abdomen: Normal bowel sounds, Soft, No tenderness Extremities: No clubbing, No cyanosis, Normal pulses, Other (left knee edema ) Skin: No breakdown, No significant lesion Labs LABS Laboratory Tests Test 04/16/18 03:30 White Blood Count 19.2 x10^3/uL (4.0-11.0) Red Blood Count 3.53 x10^6/uL (4.30-5.70) Hemoglobin 10.7 g/dL (13.0-17.5) Hematocrit 31.0 % (39.0-53.0) Mean Corpuscular Volume 88 fL (79-100) Mean Corpuscular Hemoglobin 30 pg (25-35) Mean Corpuscular Hemoglobin Concent 35 g/dL (31-37) Red Cell Distribution Width 14.4 % (11.5-14.5) Platelet Count 165 x10^3/uL (140-400) Neutrophils (%) (Auto) 80 % (31-73) Lymphocytes (%) (Auto) 11 % (24-48) Monocytes (%) (Auto) 10 % (0-9) Eosinophils (%) (Auto) 0 % (0-3) Basophils (%) (Auto) 0 % (0-3) Neutrophils # (Auto) 15.4 x10^3uL (1.8-7.7) Lymphocytes # (Auto) 2.0 x10^3/uL (1.0-4.8) Monocytes # (Auto) 1.8 x10^3/uL (0.0-1.1) Eosinophils # (Auto) 0.0 x10^3/uL (0.0-0.7) Basophils # (Auto) 0.0 x10^3/uL (0.0-0.2) Prothrombin Time 17.3 SEC (11.7-14.0) Prothromb Time International Ratio 1.5 (0.8-1.1) Sodium Level 139 mmol/L (136-145) Potassium Level 4.1 mmol/L (3.5-5.1) Chloride Level 104 mmol/L (98-107) Carbon Dioxide Level 29 mmol/L (21-32) Anion Gap 6 (6-14) Blood Urea Nitrogen 28 mg/dL (8-26) Creatinine 1.1 mg/dL (0.7-1.3) Estimated GFR (Cockcroft-Gault) 64.6 BUN/Creatinine Ratio 25 (6-20) Glucose Level 115 mg/dL (70-99) Calcium Level 8.9 mg/dL (8.5-10.1) Total Bilirubin 0.7 mg/dL (0.2-1.0) Aspartate Amino Transf (AST/SGOT) 11 U/L (15-37) Alanine Aminotransferase (ALT/SGPT) 12 U/L (16-63) Alkaline Phosphatase 45 U/L (46-116) Total Protein 5.9 g/dL (6.4-8.2) Albumin 2.4 g/dL (3.4-5.0) Albumin/Globulin Ratio 0.7 (1.0-1.7) Comment Review of Relevant I have reviewed the following items jolene (where applicable) has been applied. Labs Laboratory Tests Test 04/15/18 04:25 04/16/18 03:30 Hemoglobin 11.4 g/dL (13.0-17.5) 10.7 g/dL (13.0-17.5) Hematocrit 34.1 % (39.0-53.0) 31.0 % (39.0-53.0) Mean Corpuscular Hemoglobin Concent 34 g/dL (31-37) 35 g/dL (31-37) White Blood Count 19.2 x10^3/uL (4.0-11.0) Red Blood Count 3.53 x10^6/uL (4.30-5.70) Mean Corpuscular Volume 88 fL (79-100) Mean Corpuscular Hemoglobin 30 pg (25-35) Red Cell Distribution Width 14.4 % (11.5-14.5) Platelet Count 165 x10^3/uL (140-400) Neutrophils (%) (Auto) 80 % (31-73) Lymphocytes (%) (Auto) 11 % (24-48) Monocytes (%) (Auto) 10 % (0-9) Eosinophils (%) (Auto) 0 % (0-3) Basophils (%) (Auto) 0 % (0-3) Neutrophils # (Auto) 15.4 x10^3uL (1.8-7.7) Lymphocytes # (Auto) 2.0 x10^3/uL (1.0-4.8) Monocytes # (Auto) 1.8 x10^3/uL (0.0-1.1) Eosinophils # (Auto) 0.0 x10^3/uL (0.0-0.7) Basophils # (Auto) 0.0 x10^3/uL (0.0-0.2) Prothrombin Time 17.3 SEC (11.7-14.0) Prothromb Time International Ratio 1.5 (0.8-1.1) Sodium Level 139 mmol/L (136-145) Potassium Level 4.1 mmol/L (3.5-5.1) Chloride Level 104 mmol/L (98-107) Carbon Dioxide Level 29 mmol/L (21-32) Anion Gap 6 (6-14) Blood Urea Nitrogen 28 mg/dL (8-26) Creatinine 1.1 mg/dL (0.7-1.3) Estimated GFR (Cockcroft-Gault) 64.6 BUN/Creatinine Ratio 25 (6-20) Glucose Level 115 mg/dL (70-99) Calcium Level 8.9 mg/dL (8.5-10.1) Total Bilirubin 0.7 mg/dL (0.2-1.0) Aspartate Amino Transf (AST/SGOT) 11 U/L (15-37) Alanine Aminotransferase (ALT/SGPT) 12 U/L (16-63) Alkaline Phosphatase 45 U/L (46-116) Total Protein 5.9 g/dL (6.4-8.2) Albumin 2.4 g/dL (3.4-5.0) Albumin/Globulin Ratio 0.7 (1.0-1.7) Laboratory Tests Test 04/16/18 03:30 White Blood Count 19.2 x10^3/uL (4.0-11.0) Red Blood Count 3.53 x10^6/uL (4.30-5.70) Hemoglobin 10.7 g/dL (13.0-17.5) Hematocrit 31.0 % (39.0-53.0) Mean Corpuscular Volume 88 fL (79-100) Mean Corpuscular Hemoglobin 30 pg (25-35) Mean Corpuscular Hemoglobin Concent 35 g/dL (31-37) Red Cell Distribution Width 14.4 % (11.5-14.5) Platelet Count 165 x10^3/uL (140-400) Neutrophils (%) (Auto) 80 % (31-73) Lymphocytes (%) (Auto) 11 % (24-48) Monocytes (%) (Auto) 10 % (0-9) Eosinophils (%) (Auto) 0 % (0-3) Basophils (%) (Auto) 0 % (0-3) Neutrophils # (Auto) 15.4 x10^3uL (1.8-7.7) Lymphocytes # (Auto) 2.0 x10^3/uL (1.0-4.8) Monocytes # (Auto) 1.8 x10^3/uL (0.0-1.1) Eosinophils # (Auto) 0.0 x10^3/uL (0.0-0.7) Basophils # (Auto) 0.0 x10^3/uL (0.0-0.2) Prothrombin Time 17.3 SEC (11.7-14.0) Prothromb Time International Ratio 1.5 (0.8-1.1) Sodium Level 139 mmol/L (136-145) Potassium Level 4.1 mmol/L (3.5-5.1) Chloride Level 104 mmol/L (98-107) Carbon Dioxide Level 29 mmol/L (21-32) Anion Gap 6 (6-14) Blood Urea Nitrogen 28 mg/dL (8-26) Creatinine 1.1 mg/dL (0.7-1.3) Estimated GFR (Cockcroft-Gault) 64.6 BUN/Creatinine Ratio 25 (6-20) Glucose Level 115 mg/dL (70-99) Calcium Level 8.9 mg/dL (8.5-10.1) Total Bilirubin 0.7 mg/dL (0.2-1.0) Aspartate Amino Transf (AST/SGOT) 11 U/L (15-37) Alanine Aminotransferase (ALT/SGPT) 12 U/L (16-63) Alkaline Phosphatase 45 U/L (46-116) Total Protein 5.9 g/dL (6.4-8.2) Albumin 2.4 g/dL (3.4-5.0) Albumin/Globulin Ratio 0.7 (1.0-1.7) Medications Current Medications Acetaminophen (Tylenol) 650 mg PRN Q6HRS PRN PO FEVER; Start 04/13/18 at 16:15 Ondansetron HCl (Zofran) 4 mg PRN Q6HRS PRN IV NAUSEA/VOMITING Last administered on 04/14/18at 02:21; Start 04/13/18 at 16:15; Stop 04/14/18 at 19 :53; Status DC Morphine Sulfate (Morphine Sulfate) 2 mg PRN Q2HR PRN IV MODERATE TO SEVERE PAIN Last administered on 04/14/18at 12:33; Start 04/13/18 at 16:15; Stop at 19:53; Status DC Tramadol HCl (Ultram) 50 mg PRN Q6HRS PRN PO MILD TO MODERATE PAIN; Start at 16:15; Stop 04/14/18 at 19:53; Status DC Docusate Sodium (Colace) 100 mg PRN DAILY PRN PO HARD STOOLS; Start 04/13/18 at 16:15 Oxycodone/ Acetaminophen (Percocet 5/325) 1 tab PRN Q4HRS PRN PO SEVERE PAIN Last administered on 04/14/18at 02:21; Start 04/13/18 at 16:15; Stop 04/14/18 at 19:53; Status DC Heparin Sodium (Porcine) (Heparin Sodium) 5,000 unit Q8HRS SQ ; Start 04/13/18 at 22:00; Stop 04/13/18 at 22:00; Status DC Phytonadione 10 mg/Dextrose 51 ml @ 102 mls/hr 1X ONCE IV Last administered on 04/13/18at 19:45; Start 04/13/18 at 19:30; Stop 04/13/18 at 19:59; Status DC Aspirin (Children'S Aspirin) 81 mg DAILY PO Last administered on 04/16/18at 09: 30; Start 04/14/18 at 09:00 Phytonadione 10 mg/Dextrose 51 ml @ 102 mls/hr 1X ONCE IV ; Start 04/13/18 at 21:00; Stop 04/13/18 at 21:29; Status UNV Ondansetron HCl (Zofran) 4 mg PRN Q6HRS PRN IV NAUSEA/VOMITING; Start at 07:30; Stop 04/14/18 at 21:00; Status DC Fentanyl Citrate (Fentanyl 2ml Vial) 25 mcg PRN Q5MIN PRN IV MILD PAIN; Start 04/14/18 at 07:30; Stop 04/14/18 at 21:00; Status DC Fentanyl Citrate (Fentanyl 2ml Vial) 50 mcg PRN Q5MIN PRN IV MODERATE TO SEVERE PAIN Last administered on 04/14/18at 19:43; Start 04/14/18 at 07:30; Stop 04/14/18 at 21:00; Status DC Morphine Sulfate (Morphine Sulfate) 1 mg PRN Q10MIN PRN IV SEVERE PAIN; Start 04/14/18 at 07:30; Stop 04/14/18 at 21:00; Status DC Ringer's Solution 1,000 ml @ 30 mls/hr Q24H IV ; Start 04/14/18 at 07:30; Stop 04/14/18 at 19:30; Status DC Lidocaine HCl (Xylocaine-Mpf 1% 2ml Vial) 2 ml 1X PRN PRN ID IV START; Start 04/14/18 at 07:30; Stop 04/14/18 at 21:00; Status DC Hydromorphone HCl (Dilaudid) 0.5 mg PRN Q10MIN PRN IV SEV PAIN, Second choice; Start 04/14/18 at 07:30; Stop 04/14/18 at 21:00; Status DC Prochlorperazine Edisylate (Compazine) 5 mg PACU PRN PRN IV NAUSEA, MRX1; Start 04/14/18 at 07:30; Stop 04/14/18 at 21:00; Status DC Dexamethasone Sodium Phosphate (Decadron) 20 mg STK-MED ONCE .ROUTE ; Start at 16:10; Stop 04/14/18 at 16:11; Status DC Ondansetron HCl (Zofran) 4 mg STK-MED ONCE .ROUTE ; Start 04/14/18 at 16:10; Stop 04/14/18 at 16:11; Status DC Famotidine (Pepcid Vial) 20 mg STK-MED ONCE .ROUTE ; Start 04/14/18 at 16:10; Stop 04/14/18 at 16:11; Status DC Propofol 20 ml @ As Directed STK-MED ONCE IV ; Start 04/14/18 at 16:10; Stop 04/14/18 at 16:11; Status DC Rocuronium [place] (Zemuron) 50 mg STK-MED ONCE .ROUTE ; Start 04/14/18 at 16: 12; Stop 04/14/18 at 16:13; Status DC Lidocaine HCl (Lidocaine Pf 2% Vial) 5 ml STK-MED ONCE .ROUTE ; Start 04/14/18 at 16:23; Stop 04/14/18 at 16:24; Status DC Fentanyl Citrate (Fentanyl 2ml Vial) 100 mcg STK-MED ONCE .ROUTE ; Start at 16:23; Stop 04/14/18 at 16:24; Status DC Cefazolin Sodium/ Dextrose 50 ml @ 100 mls/hr 1X ONCE IV Last administered on 04/14/18at 17:35; Start 04/14/18 at 17:17; Stop 04/14/18 at 17:46; Status DC Phenylephrine HCl (PHENYLEPHRINE in 0.9% NACL PF) 1 mg STK-MED ONCE IV ; Start 04/14/18 at 17:39; Stop 04/14/18 at 17:40; Status DC Propofol 20 ml @ As Directed STK-MED ONCE IV ; Start 04/14/18 at 17:39; Stop 04/14/18 at 17:40; Status DC Sevoflurane (Ultane) 90 ml STK-MED ONCE IH ; Start 04/14/18 at 17:44; Stop at 17:45; Status DC Bupivacaine HCl/ Epinephrine Bitart (Sensorcain-Mpf Epi 0.5%-1:249851) 30 ml STK -MED ONCE .ROUTE Last administered on 04/14/18at 19:10; Start 04/14/18 at 17: 09; Stop 04/14/18 at 18:10; Status DC Glycopyrrolate (Robinul) 1 mg STK-MED ONCE .ROUTE ; Start 04/14/18 at 18:22; Stop 04/14/18 at 18:23; Status DC Neostigmine Methylsulfate (Neostigmine Methylsulfate) 5 mg STK-MED ONCE .ROUTE ; Start 04/14/18 at 18:22; Stop 04/14/18 at 18:23; Status DC Oxycodone HCl (Roxicodone) 5 mg PRN Q3HRS PRN PO PAIN; Start 04/14/18 at 19:45 Morphine Sulfate (Morphine Sulfate) 2 mg PRN Q1HR PRN IV PAIN; Start 04/14/18 at 19:45 Fentanyl Citrate (Fentanyl 2ml Vial) 25 mcg PRN Q1HR PRN IV PAIN Last administered on 04/14/18at 20:00; Start 04/14/18 at 19:45 Senna/Docusate Sodium (Senna Plus) 1 tab DAILY PO Last administered on at 09:30; Start 04/15/18 at 09:00 Polyethylene Glycol (miraLAX PACKET) 17 gm PRN DAILY PRN PO CONSTIPATION; Start 04/14/18 at 19:45 Ondansetron HCl (Zofran) 4 mg PRN Q4HRS PRN IV NAUSEA/VOMITING; Start at 19:45 Warfarin Sodium (Coumadin Per Pharmacy) 1 each PRN DAILY PRN MC SEE COMMENTS Last administered on 04/15/18at 11:55; Start 04/15/18 at 19:45 Magnesium Hydroxide (Milk Of Magnesia) 2,400 mg 1X PRN PRN PO CONSTIPATION; Start 04/15/18 at 06:00; Stop 04/16/18 at 05:59; Status DC Bisacodyl (Dulcolax Supp) 10 mg 1X PRN PRN [place] CONSTIPATION; Start 04/15/18 at 16:00; Stop 04/16/18 at 15:59 Acetaminophen/ Hydrocodone Bitart (Lortab 7.5/325) 1 tab PRN Q4HRS PRN PO PAIN Last administered on 04/16/18at 05:49; Start 04/14/18 at 19:45 Morphine Sulfate (Morphine Sulfate) 4 mg PRN Q2HR PRN IV PAIN; Start 04/14/18 at 19:45 Acetaminophen/ Hydrocodone Bitart (Lortab 7.5/325) 2 tab PRN Q4HRS PRN PO PAIN Last administered on 04/16/18at 09:30; Start 04/14/18 at 19:45 Dextrose (Dextrose 50%-Water Syringe) 12.5 gm PRN Q15MIN PRN IV SEE COMMENTS; Start 04/14/18 at 19:45 Cefazolin Sodium/ Dextrose 50 ml @ 100 mls/hr Q6H IV Last administered on at 12:13; Start 04/14/18 at 23:30; Stop 04/15/18 at 11:59; Status DC Warfarin Sodium (Coumadin) 7.5 mg 1X ONCE PO Last administered on 04/14/18at 21:13; Start 04/14/18 at 21:00; Stop 04/14/18 at 21:01; Status DC Warfarin Sodium (Coumadin) 10 mg 1X WARF ONCE PO Last administered on at 17:37; Start 04/15/18 at 16:00; Stop 04/15/18 at 16:01; Status DC Throat Lozenges (Cepacol Sore Throat Lozenge) 1 cecilia PRN Q2HRS PRN PO SORE THROAT Last administered on 04/15/18at 12:12; Start 04/15/18 at 12:15 Active Scripts Active Reported Lovastatin 20 Mg Tablet 20 Mg PO HS Warfarin Sodium 5 Mg Tablet 1 Tab PO QMTUTHSA Warfarin Sodium 2 Mg Tablet 2.5 Mg PO QWE Warfarin Sodium 2 Mg Tablet 2.5 Mg PO QSU Aspirin 81 Mg Tab.chew 1 Tab PO DAILY Vitals/I & O Vital Sign - Last 24 Hours 04/15/18 04/15/18 04/15/18 04/15/18 11:00 15:00 17:38 19:48 Temp 98.4 98.1 97.7 98.4 98.1 97.7 Pulse 93 101 78 Resp 18 18 18 B/P (MAP) 118/71 (87) 128/80 (96) 111/55 (73) Pulse Ox 96 97 93 O2 Delivery Room Air Room Air Room Air Room Air 04/15/18 04/15/18 04/16/18 04/16/18 20:00 23:07 03:44 05:49 Temp 97.8 97.8 97.8 97.8 Pulse 75 69 Resp 18 18 B/P (MAP) 125/89 (101) 144/72 (96) Pulse Ox 93 93 O2 Delivery Room Air Room Air Room Air Room Air 04/16/18 04/16/18 04/16/18 06:50 07:00 09:30 Temp 97.9 97.9 Pulse 63 Resp 18 B/P (MAP) 129/69 (89) Pulse Ox 98 O2 Delivery Room Air Room Air Room Air Intake and Output 04/15/18 04/15/18 04/16/18 15:00 23:00 07:00 Intake Total 250 ml Output Total 600 ml Balance -350 ml LISSETTE ALVARADO MD Apr 16, 2018 10:15
[2018-04-16 11:00] VITALS: BP 128/88
--- NOTE | 2018-04-16 11:37 | PDOC3 ---
Discharge Summary Date of Admission: Apr 13, 2018 Date of Discharge: Apr 16, 2018 Follow-Up: 1-2 days Admitting Diagnosis comment: d/c diagnosis Chief Complaint Traumatic mechanical fall w/left subtrochanteric femur fx, was knocked over at local restaurant from standing position H/o HTN H/o hyperlipidemia H/o PAD, right leg stents H/o CAD, s/p previous PCI/stent to LAD H/o afib H/o bradycardia d/c to snf today d/c planning 31 min History of Present Illness History of Present Illness Pt seen and examined Discussed case w/RN Discussed plan w/pt Vitals Vitals Vital Signs Date Time Temp Pulse Resp B/P (MAP) Pulse Ox O2 Delivery O2 Flow Rate FiO2 04/16/18 09:30 Room Air 04/16/18 07:00 97.9 63 18 129/69 (89) 98 97.9 Physical Exam General: Alert, Oriented X3, Cooperative, No acute distress, mild distress Heart: Regular rate, Normal S1, Normal S2 Lungs: Clear Abdomen: Normal bowel sounds, Soft, No tenderness Extremities: No clubbing, No cyanosis, Normal pulses, Other (left knee edema, dry dressing ) Skin: No breakdown, No significant lesion Labs Brief Hospital Course Mr. Pham is a 78 old [sex] who presented with [hip fx ] Discharge Medications Current Medications Acetaminophen (Tylenol) 650 mg PRN Q6HRS PRN PO FEVER; Start 04/13/18 at 16:15 Ondansetron HCl (Zofran) 4 mg PRN Q6HRS PRN IV NAUSEA/VOMITING Last administered on 04/14/18at 02:21; Start 04/13/18 at 16:15; Stop 04/14/18 at 19 :53; Status DC Morphine Sulfate (Morphine Sulfate) 2 mg PRN Q2HR PRN IV MODERATE TO SEVERE PAIN Last administered on 04/14/18at 12:33; Start 04/13/18 at 16:15; Stop at 19:53; Status DC Tramadol HCl (Ultram) 50 mg PRN Q6HRS PRN PO MILD TO MODERATE PAIN; Start at 16:15; Stop 04/14/18 at 19:53; Status DC Docusate Sodium (Colace) 100 mg PRN DAILY PRN PO HARD STOOLS; Start 04/13/18 at 16:15 Oxycodone/ Acetaminophen (Percocet 5/325) 1 tab PRN Q4HRS PRN PO SEVERE PAIN Last administered on 04/14/18at 02:21; Start 04/13/18 at 16:15; Stop 04/14/18 at 19:53; Status DC Heparin Sodium (Porcine) (Heparin Sodium) 5,000 unit Q8HRS SQ ; Start 04/13/18 at 22:00; Stop 04/13/18 at 22:00; Status DC Phytonadione 10 mg/Dextrose 51 ml @ 102 mls/hr 1X ONCE IV Last administered on 04/13/18at 19:45; Start 04/13/18 at 19:30; Stop 04/13/18 at 19:59; Status DC Aspirin (Children'S Aspirin) 81 mg DAILY PO Last administered on 04/16/18at 09: 30; Start 04/14/18 at 09:00 Phytonadione 10 mg/Dextrose 51 ml @ 102 mls/hr 1X ONCE IV ; Start 04/13/18 at 21:00; Stop 04/13/18 at 21:29; Status UNV Ondansetron HCl (Zofran) 4 mg PRN Q6HRS PRN IV NAUSEA/VOMITING; Start at 07:30; Stop 04/14/18 at 21:00; Status DC Fentanyl Citrate (Fentanyl 2ml Vial) 25 mcg PRN Q5MIN PRN IV MILD PAIN; Start 04/14/18 at 07:30; Stop 04/14/18 at 21:00; Status DC Fentanyl Citrate (Fentanyl 2ml Vial) 50 mcg PRN Q5MIN PRN IV MODERATE TO SEVERE PAIN Last administered on 04/14/18at 19:43; Start 04/14/18 at 07:30; Stop 04/14/18 at 21:00; Status DC Morphine Sulfate (Morphine Sulfate) 1 mg PRN Q10MIN PRN IV SEVERE PAIN; Start 04/14/18 at 07:30; Stop 04/14/18 at 21:00; Status DC Ringer's Solution 1,000 ml @ 30 mls/hr Q24H IV ; Start 04/14/18 at 07:30; Stop 04/14/18 at 19:30; Status DC Lidocaine HCl (Xylocaine-Mpf 1% 2ml Vial) 2 ml 1X PRN PRN ID IV START; Start 04/14/18 at 07:30; Stop 04/14/18 at 21:00; Status DC Hydromorphone HCl (Dilaudid) 0.5 mg PRN Q10MIN PRN IV SEV PAIN, Second choice; Start 04/14/18 at 07:30; Stop 04/14/18 at 21:00; Status DC Prochlorperazine Edisylate (Compazine) 5 mg PACU PRN PRN IV NAUSEA, MRX1; Start 04/14/18 at 07:30; Stop 04/14/18 at 21:00; Status DC Dexamethasone Sodium Phosphate (Decadron) 20 mg STK-MED ONCE .ROUTE ; Start at 16:10; Stop 04/14/18 at 16:11; Status DC Ondansetron HCl (Zofran) 4 mg STK-MED ONCE .ROUTE ; Start 04/14/18 at 16:10; Stop 04/14/18 at 16:11; Status DC Famotidine (Pepcid Vial) 20 mg STK-MED ONCE .ROUTE ; Start 04/14/18 at 16:10; Stop 04/14/18 at 16:11; Status DC Propofol 20 ml @ As Directed STK-MED ONCE IV ; Start 04/14/18 at 16:10; Stop 04/14/18 at 16:11; Status DC Rocuronium Maljam[place] (Zemuron) 50 mg STK-MED ONCE .ROUTE ; Start 04/14/18 at 16: 12; Stop 04/14/18 at 16:13; Status DC Lidocaine HCl (Lidocaine Pf 2% Vial) 5 ml STK-MED ONCE .ROUTE ; Start 04/14/18 at 16:23; Stop 04/14/18 at 16:24; Status DC Fentanyl Citrate (Fentanyl 2ml Vial) 100 mcg STK-MED ONCE .ROUTE ; Start at 16:23; Stop 04/14/18 at 16:24; Status DC Cefazolin Sodium/ Dextrose 50 ml @ 100 mls/hr 1X ONCE IV Last administered on 04/14/18at 17:35; Start 04/14/18 at 17:17; Stop 04/14/18 at 17:46; Status DC Phenylephrine HCl (PHENYLEPHRINE in 0.9% NACL PF) 1 mg STK-MED ONCE IV ; Start 04/14/18 at 17:39; Stop 04/14/18 at 17:40; Status DC Propofol 20 ml @ As Directed STK-MED ONCE IV ; Start 04/14/18 at 17:39; Stop 04/14/18 at 17:40; Status DC Sevoflurane (Ultane) 90 ml STK-MED ONCE IH ; Start 04/14/18 at 17:44; Stop at 17:45; Status DC Bupivacaine HCl/ Epinephrine Bitart (Sensorcain-Mpf Epi 0.5%-1:318529) 30 ml STK -MED ONCE .ROUTE Last administered on 04/14/18at 19:10; Start 04/14/18 at 17: 09; Stop 04/14/18 at 18:10; Status DC Glycopyrrolate (Robinul) 1 mg STK-MED ONCE .ROUTE ; Start 04/14/18 at 18:22; Stop 04/14/18 at 18:23; Status DC Neostigmine Methylsulfate (Neostigmine Methylsulfate) 5 mg STK-MED ONCE .ROUTE ; Start 04/14/18 at 18:22; Stop 04/14/18 at 18:23; Status DC Oxycodone HCl (Roxicodone) 5 mg PRN Q3HRS PRN PO PAIN; Start 04/14/18 at 19:45 Morphine Sulfate (Morphine Sulfate) 2 mg PRN Q1HR PRN IV PAIN; Start 04/14/18 at 19:45 Fentanyl Citrate (Fentanyl 2ml Vial) 25 mcg PRN Q1HR PRN IV PAIN Last administered on 04/14/18at 20:00; Start 04/14/18 at 19:45 Senna/Docusate Sodium (Senna Plus) 1 tab DAILY PO Last administered on at 09:30; Start 04/15/18 at 09:00 Polyethylene Glycol (miraLAX PACKET) 17 gm PRN DAILY PRN PO CONSTIPATION; Start 04/14/18 at 19:45 Ondansetron HCl (Zofran) 4 mg PRN Q4HRS PRN IV NAUSEA/VOMITING; Start at 19:45 Warfarin Sodium (Coumadin Per Pharmacy) 1 each PRN DAILY PRN MC SEE COMMENTS Last administered on 04/15/18at 11:55; Start 04/15/18 at 19:45 Magnesium Hydroxide (Milk Of Magnesia) 2,400 mg 1X PRN PRN PO CONSTIPATION; Start 04/15/18 at 06:00; Stop 04/16/18 at 05:59; Status DC Bisacodyl (Dulcolax Supp) 10 mg 1X PRN PRN [place] CONSTIPATION; Start 04/15/18 at 16:00; Stop 04/16/18 at 15:59 Acetaminophen/ Hydrocodone Bitart (Lortab 7.5/325) 1 tab PRN Q4HRS PRN PO PAIN Last administered on 04/16/18at 05:49; Start 04/14/18 at 19:45 Morphine Sulfate (Morphine Sulfate) 4 mg PRN Q2HR PRN IV PAIN; Start 04/14/18 at 19:45 Acetaminophen/ Hydrocodone Bitart (Lortab 7.5/325) 2 tab PRN Q4HRS PRN PO PAIN Last administered on 04/16/18at 09:30; Start 04/14/18 at 19:45 Dextrose (Dextrose 50%-Water Syringe) 12.5 gm PRN Q15MIN PRN IV SEE COMMENTS; Start 04/14/18 at 19:45 Cefazolin Sodium/ Dextrose 50 ml @ 100 mls/hr Q6H IV Last administered on at 12:13; Start 04/14/18 at 23:30; Stop 04/15/18 at 11:59; Status DC Warfarin Sodium (Coumadin) 7.5 mg 1X ONCE PO Last administered on 04/14/18at 21:13; Start 04/14/18 at 21:00; Stop 04/14/18 at 21:01; Status DC Warfarin Sodium (Coumadin) 10 mg 1X WARF ONCE PO Last administered on at 17:37; Start 04/15/18 at 16:00; Stop 04/15/18 at 16:01; Status DC Throat Lozenges (Cepacol Sore Throat Lozenge) 1 cecilia PRN Q2HRS PRN PO SORE THROAT Last administered on 04/15/18at 12:12; Start 04/15/18 at 12:15 Active Scripts Active Reported Lovastatin 20 Mg Tablet 20 Mg PO HS Warfarin Sodium 5 Mg Tablet 1 Tab PO QMTUTHSA Warfarin Sodium 2 Mg Tablet 2.5 Mg PO QWE Warfarin Sodium 2 Mg Tablet 2.5 Mg PO QSU Aspirin 81 Mg Tab.chew 1 Tab PO DAILY Vital Signs Vital Signs Date Time Temp Pulse Resp B/P (MAP) Pulse Ox O2 Delivery O2 Flow Rate FiO2 04/16/18 11:00 97.6 112 18 128/88 (101) 97 Room Air 97.6 Labs Laboratory Tests Test 04/15/18 04:25 04/16/18 03:30 Hemoglobin 11.4 g/dL (13.0-17.5) 10.7 g/dL (13.0-17.5) Hematocrit 34.1 % (39.0-53.0) 31.0 % (39.0-53.0) Mean Corpuscular Hemoglobin Concent 34 g/dL (31-37) 35 g/dL (31-37) White Blood Count 19.2 x10^3/uL (4.0-11.0) Red Blood Count 3.53 x10^6/uL (4.30-5.70) Mean Corpuscular Volume 88 fL (79-100) Mean Corpuscular Hemoglobin 30 pg (25-35) Red Cell Distribution Width 14.4 % (11.5-14.5) Platelet Count 165 x10^3/uL (140-400) Neutrophils (%) (Auto) 80 % (31-73) Lymphocytes (%) (Auto) 11 % (24-48) Monocytes (%) (Auto) 10 % (0-9) Eosinophils (%) (Auto) 0 % (0-3) Basophils (%) (Auto) 0 % (0-3) Neutrophils # (Auto) 15.4 x10^3uL (1.8-7.7) Lymphocytes # (Auto) 2.0 x10^3/uL (1.0-4.8) Monocytes # (Auto) 1.8 x10^3/uL (0.0-1.1) Eosinophils # (Auto) 0.0 x10^3/uL (0.0-0.7) Basophils # (Auto) 0.0 x10^3/uL (0.0-0.2) Prothrombin Time 17.3 SEC (11.7-14.0) Prothromb Time International Ratio 1.5 (0.8-1.1) Sodium Level 139 mmol/L (136-145) Potassium Level 4.1 mmol/L (3.5-5.1) Chloride Level 104 mmol/L (98-107) Carbon Dioxide Level 29 mmol/L (21-32) Anion Gap 6 (6-14) Blood Urea Nitrogen 28 mg/dL (8-26) Creatinine 1.1 mg/dL (0.7-1.3) Estimated GFR (Cockcroft-Gault) 64.6 BUN/Creatinine Ratio 25 (6-20) Glucose Level 115 mg/dL (70-99) Calcium Level 8.9 mg/dL (8.5-10.1) Total Bilirubin 0.7 mg/dL (0.2-1.0) Aspartate Amino Transf (AST/SGOT) 11 U/L (15-37) Alanine Aminotransferase (ALT/SGPT) 12 U/L (16-63) Alkaline Phosphatase 45 U/L (46-116) Total Protein 5.9 g/dL (6.4-8.2) Albumin 2.4 g/dL (3.4-5.0) Albumin/Globulin Ratio 0.7 (1.0-1.7) Laboratory Tests Test 04/16/18 03:30 White Blood Count 19.2 x10^3/uL (4.0-11.0) Red Blood Count 3.53 x10^6/uL (4.30-5.70) Hemoglobin 10.7 g/dL (13.0-17.5) Hematocrit 31.0 % (39.0-53.0) Mean Corpuscular Volume 88 fL (79-100) Mean Corpuscular Hemoglobin 30 pg (25-35) Mean Corpuscular Hemoglobin Concent 35 g/dL (31-37) Red Cell Distribution Width 14.4 % (11.5-14.5) Platelet Count 165 x10^3/uL (140-400) Neutrophils (%) (Auto) 80 % (31-73) Lymphocytes (%) (Auto) 11 % (24-48) Monocytes (%) (Auto) 10 % (0-9) Eosinophils (%) (Auto) 0 % (0-3) Basophils (%) (Auto) 0 % (0-3) Neutrophils # (Auto) 15.4 x10^3uL (1.8-7.7) Lymphocytes # (Auto) 2.0 x10^3/uL (1.0-4.8) Monocytes # (Auto) 1.8 x10^3/uL (0.0-1.1) Eosinophils # (Auto) 0.0 x10^3/uL (0.0-0.7) Basophils # (Auto) 0.0 x10^3/uL (0.0-0.2) Prothrombin Time 17.3 SEC (11.7-14.0) Prothromb Time International Ratio 1.5 (0.8-1.1) Sodium Level 139 mmol/L (136-145) Potassium Level 4.1 mmol/L (3.5-5.1) Chloride Level 104 mmol/L (98-107) Carbon Dioxide Level 29 mmol/L (21-32) Anion Gap 6 (6-14) Blood Urea Nitrogen 28 mg/dL (8-26) Creatinine 1.1 mg/dL (0.7-1.3) Estimated GFR (Cockcroft-Gault) 64.6 BUN/Creatinine Ratio 25 (6-20) Glucose Level 115 mg/dL (70-99) Calcium Level 8.9 mg/dL (8.5-10.1) Total Bilirubin 0.7 mg/dL (0.2-1.0) Aspartate Amino Transf (AST/SGOT) 11 U/L (15-37) Alanine Aminotransferase (ALT/SGPT) 12 U/L (16-63) Alkaline Phosphatase 45 U/L (46-116) Total Protein 5.9 g/dL (6.4-8.2) Albumin 2.4 g/dL (3.4-5.0) Albumin/Globulin Ratio 0.7 (1.0-1.7) Allergies Allergies Coded Allergies Type Severity Reaction Last Updated Verified No Known Drug Allergies 04/13/18 No Disposition/Orders: Other (snf bed) LISSETTE ALVARADO MD Apr 16, 2018 11:36
--- NOTE | 2018-04-16 11:48 | DISCH ---
DISCHARGE DISCHARGE INFORMATION: CONDITION ON DISCHARGE: Stable CODE STATUS: Code Status: Full CARE HOME: SNF STAY <30 DAYS: Yes HOSPICE: HOSPICE: No HOSPICE EVAL & TREAT: No LTAC: ADMIT TO LTAC: No POST DISCHARGE ORDERS: WEIGHT BEARING STATUS: Partial weight bearing BATHING ORDERS: Shower-keep dressing dry DIET AFTER DISCHARGE: Cardiac CHECKS AFTER DISCHARGE: CHECKS AFTER DISCHARGE: Check blood press - daily TREATMENT/EQUIPMENT ORDERS: Physical Therapy For: Evalulation/Treatment Occupational Therapy For: Evaluation/Treatment Speech Language Pathology For: Evaluation/Treatment DISCHARGE MEDICATIONS: Home Meds Reported Medications Lovastatin (LOVASTATIN) 20 Mg Tablet, 20 MG PO HS, TAB 04/13/18 Warfarin Sodium (WARFARIN SODIUM) 5 Mg Tablet, 1 TAB PO QMTUTHSA, #90 TAB 1 Refill 04/13/18 Warfarin Sodium (WARFARIN SODIUM) 2 Mg Tablet, 2.5 MG PO QWE, TAB 04/13/18 Warfarin Sodium (WARFARIN SODIUM) 2 Mg Tablet, 2.5 MG PO QSU, TAB 04/13/18 Aspirin (ASPIRIN) 81 Mg Tab.chew, 1 TAB PO DAILY, #30 TAB 3 Refills 04/13/18 LISSETTE ALVARADO MD Apr 16, 2018 11:48
[2018-04-16] MEDS ORDERED: DOCU-109 PO (11:53)
[2018-04-16] MEDS ORDERED: HYDR-2762 PO (11:53)
[2018-04-16] MEDS ORDERED: POLY17PO3 PO (11:53)
[2018-04-16] MEDS ORDERED: WARFARIN 6 MG TABLET. PO ONE (13:00)
[2018-04-16 15:00] VITALS: BP 129/72
== END 2018-04-16 16:10 | DRG 481 ==
LOC: ER 14:43 → 4 NORTH 15:34
PROVIDERS: ADMIT Internal Medicine; ATTEND Internal Medicine
PROC: 0QS704Z Reposition Left Upper Femur with Internal Fixation Device, Open Approach (ICD-10-PCS; principal; 2018-04-14 16:30)
DX: S72.22XA Displaced subtrochanteric fracture of left femur, initial encounter for closed fracture (principal); E44.0 Moderate protein-calorie malnutrition; I10 Essential (primary) hypertension; I25.10 Atherosclerotic heart disease of native coronary artery without angina pectoris; I73.9 Peripheral vascular disease, unspecified; E78.5 Hyperlipidemia, unspecified; I48.0 Paroxysmal atrial fibrillation; Z96.652 Presence of left artificial knee joint; W18.39XA Other fall on same level, initial encounter; Y93.89 Activity, other specified; Y92.511 Restaurant or cafe as the place of occurrence of the external cause; Y99.8 Other external cause status; Z95.5 Presence of coronary angioplasty implant and graft; Z98.42 Cataract extraction status, left eye; Z82.49 Family history of ischemic heart disease and other diseases of the circulatory system
CPT/HCPCS: 36415; 71045; 73502; 73552; 76000; 80048; 80053; 81001; 82306; 85007; 85014; 85018; 85025; 85610; 93005; 93306; C1713; C1887; J0690; J1100; J2001; J2270; J2370; J2405; J2704; J2710; J3010; J3430; J3490; J7120; 97110; 97116; 97530; 99285-25

== ENCOUNTER → 2018-07-09 | Outpatient (CLI) | payer OTHER ==
[~2018-07-09] MED LIST: ASPI-630 PO; DOCU-109 PO; HYDR-2765 PO; LOVA20TA2 PO; POLY17PO28 PO; WARF-31 PO; WARF2TAB96 PO
--- NOTE | 2018-07-10 08:37 | KCIC ---
Exam:Right ribs with PA chest Date: 07/09/2018 12:00 AM Comparison: Chest radiograph 04/13/2018 Indication: Right upper rib pain, right shoulder pain. Pleuritic pain for 2 weeks. Findings: The heart is not enlarged. Atherosclerotic calcifications of the tortuous aorta are seen. Mediastinal and hilar contours are stable. Mild emphysematous changes seen. Nodular opacity in the right upper lung measuring 9 mm. Patchy opacities in the peripheral left upper lobe. Recommend radiographic follow-up to resolution. No pleural effusion or pneumothorax. Electronic device projects over the left chest wall. AP, Oblique and Spot images of the right ribs are negative for acute displaced rib fracture. Decreased bone mineral density. Negative focal pleural elevation. Symmetrical intercostal spacing. IMPRESSION: 1. No definite right rib fractures identified although evaluation is limited by a decrease in bone mineral density. It is also of note that an acute non-displaced rib fracture can be in-apparent on initial post-trauma imaging. 2. Nodular opacity in the right upper lung measuring 9 mm. Radiographic follow-up to resolution is recommended. Electronically signed by: Juan Diego Neumann MD (07/10/2018 8:32 AM) [id number]
== END | disposition home or self-care (01) ==
LOC: KCIC 14:45
PROVIDERS: ATTEND Nurse Practitioner Family
DX: R07.81 Pleurodynia (principal); R91.8 Other nonspecific abnormal finding of lung field; I70.0 Atherosclerosis of aorta; M25.511 Pain in right shoulder
CPT/HCPCS: 71101

== ENCOUNTER → 2018-08-27 | Outpatient (CLI) | payer OTHER ==
--- NOTE | 2018-08-27 15:07 | KCIC ---
EXAM: CT Chest without IV contrast CLINICAL HISTORY: Lung nodules, follow-up. Right upper lobe opacities on recent chest x-ray COMPARISON: None. TECHNIQUE: CT of the chest without intravenous contrast. Axial, coronal and sagittal reformatted images were generated. ---PQRS compliance statement - One or more of the following individualized dose reduction techniques were utilized for this study: 1. Automated exposure control 2. Adjustment of the mA and/or kV according to patient size 3. Use of iterative reconstruction technique--- FINDINGS: Lack of intravenous contrast limits evaluation of solid organs, vasculature, and lymph nodes. Chest: The heart is not enlarged. No pericardial effusion. Coronary artery calcifications are seen. Calcified mediastinal and hilar lymph nodes are seen. Within the constraints of this noncontrast examination, no mediastinal or hilar lymphadenopathy by size criteria. There is no axillary lymphadenopathy. No pleural effusion or pneumothorax. A nodular pleural-based opacity is seen in the peripheral right upper lobe likely corresponding to findings on prior chest radiograph measuring 6 mm. Compared to prior CT from 07/15/2017, this is new. Pleural-based left upper lobe nodularity is grossly stable to 07/15/2017 when accounting for differences in technique, measuring approximately 1 cm on today's examination. Mild emphysematous changes are seen. Linear opacities in the middle lobe likely scarring/atelectasis. Vague groundglass density at the lateral margin of the right upper lobe (image 27) is new. Visualized Upper abdomen: Hypodense lesion in the right hepatic lobe is stable to 07/15/2017. Aortic calcifications are seen. Bones: Multilevel degenerative changes of the spine are seen. Diffusely decreased bone mineral density. No discrete fractures identified. IMPRESSION: 1. The nodular opacity seen in the right upper lung on prior chest radiograph corresponds to a 6 mm right upper lobe lung nodule. Since this is new compared to prior CT 07/15/2017, initial CT follow-up is recommended in 6-12 months. Additional follow-up can be considered in 18-24 month based on risk factors. 2. The left-sided lung subpleural nodular opacities compared to prior CT are stable to borderline less conspicuous. Recommend close attention on follow-up. 3. Vague groundglass density of the lateral margin of the right upper lobe, can also be evaluated on the follow-up exam. Electronically signed by: Juan Diego Neumann MD (08/27/2018 3:04 PM) [id number]
== END | disposition home or self-care (01) ==
LOC: KCIC CT 13:28
PROVIDERS: ATTEND Nurse Practitioner Family
DX: R91.1 Solitary pulmonary nodule (principal); J43.9 Emphysema, unspecified; I70.0 Atherosclerosis of aorta; K76.89 Other specified diseases of liver
CPT/HCPCS: 71250

== ENCOUNTER → 2018-12-11 | Outpatient (CLI) | payer OTHER ==
--- NOTE | 2018-12-11 14:13 | KCIC ---
Left lower extremity venous duplex study 12/11/2018 Clinical History: History of left lower extremity DVT. Evaluate for residual thrombus. Technique: Using a combination of real time ultrasound imaging and color-flow and pulse Doppler imaging techniques, including spectral analysis, graded compression and augmentation, duplex evaluation of the deep venous system of the left lower extremity was performed. Multiple images were obtained. Findings: There is no sonographic evidence of deep venous thrombosis involving the visualized deep venous structures of the left lower extremity Impression: No evidence of deep venous thrombosis involving the left lower extremity Electronically signed by: Ramirez Gilmore MD (12/11/2018 2:11 PM) [id number]
== END | disposition home or self-care (01) ==
LOC: KCIC US 11:44
PROVIDERS: ATTEND Family Medicine
DX: Z79.01 Long term (current) use of anticoagulants (principal); Z86.718 Personal history of other venous thrombosis and embolism
CPT/HCPCS: 93971

== ENCOUNTER → 2020-10-17 | Outpatient (CLI) | payer MEDICARE ==
[~2020-10-17] MED LIST changes: -POLY17PO28 PO; +POLY17PO52 PO
--- NOTE | 2020-10-17 15:35 | KCIC ---
EXAM: Brain MRI without contrast. HISTORY: Alzheimer's dementia. TECHNIQUE: Multiplanar, multisequence magnetic resonance imaging of the brain was performed without c ontrast. COMPARISON: None. FINDINGS: There is no restricted diffusion to suggest acute or subacute infarction. There is no susce ptibility effect to suggest hemorrhage. There is no mass effect or midline shift. There is no hydroce phalus. There is cerebral volume loss. No suspicious white matter lesion is seen. There is a tiny dilated per ivascular space or chronic lacunar infarct within the right thalamus. There is also a tiny dilated pe rivascular space or tiny infarct within the left deep frontal white matter. There is evidence of lens surgery. There is mild ethmoid sinus because of thickening. Is minimal flui d within the inferior left mastoid air cells. There are normal flow voids within the cerebral vessels . There is no suspicious calvarial lesion. IMPRESSION: 1. No acute intracranial finding or significant cerebral white matter disease. 2. Cerebral volume loss. 3. Tiny chronic lacunar infarcts or dilated perivascular spaces within the right thalamus and left de ep frontal white matter. Electronically signed by: Zainab Pressley MD (10/17/2020 3:32 PM) [id number]
== END ==
LOC: KCIC MRI 13:00
PROVIDERS: ATTEND Nurse Practitioner Family
DX: G30.1 Alzheimer's disease with late onset (principal); F02.80 Dementia in other diseases classified elsewhere, unspecified severity, without behavioral disturbance, psychotic disturbance, mood disturbance, and anxiety
CPT/HCPCS: 70551